=== PATIENT | female | born 1960 | race Caucasian/White ===

== ENCOUNTER → 2017-05-03 10:24 | Outpatient (CLI) | payer MEDICARE, SELFPAY ==
--- NOTE | 2017-05-03 10:27 | XR_ITS ---
XR knee LT 4V HISTORY: ITS.REASON: left knee pain ORDERING PHYSICIAN: Jun Daly MD PATIENT AGE: 56 years COMPARISON: None FINDINGS: Weightbearing views are performed. There are severe osteoarthritic changes of the left knee greater at the medial compartment with bone on bone and loss of the joint space medially. There is osteosclerosis of the articular surface of the medial compartment. Moderate osteoarthritic changes are present at the patellofemoral joint and lateral compartment. Scattered osteophytes are present involving all 3 compartments. A 6 mm rounded calcific density is present medial to the medial compartment and could represent a loose fragment versus periarticular calcification. IMPRESSION: Osteoarthritis of left knee greatest at the medial compartment as described above
--- NOTE | 2017-05-03 10:27 | XR_ITS ---
XR knee RT 4V HISTORY: ITS.REASON: right knee pain ORDERING PHYSICIAN: Jun Daly MD PATIENT AGE: 56 years COMPARISON: None FINDINGS: Weightbearing views are performed. No fracture or dislocation. No lytic or blastic change. Normal mineralization. Severe osteoarthritic changes are present at the medial compartment with loss of joint space with bone on bone. Moderate osteoarthritic changes are present at the lateral compartment and patellofemoral joint. Osteophyte formation is present involving all 3 compartments. There is mild lateral tibial translation of approximately 7 mm. IMPRESSION: Osteoarthritis of the right knee worse at the medial compartment as described above
== END ==
PROVIDERS: PCP Family Medicine; Visit Provider Orthopaedic Surgery
DX: M25.562 Pain in left knee (principal); M25.561 Pain in right knee
CPT/HCPCS: 73564

== ENCOUNTER 2017-12-25 09:00 | Outpatient (RCR) | payer MEDICARE, SELFPAY | END 2017-12-25 09:01 | disposition home or self-care (01) | LOC: PT 09:00 | PROVIDERS: Family Provider Family Medicine; PCP Family Medicine; Visit Provider Orthopaedic Surgery Adult Reconstructive Orthopaedic Surgery | DX: Z96.652 Presence of left artificial knee joint (principal) | CPT/HCPCS: 97010; 97014; 97016; 97110; 97140; 97163; G0283 ==

== ENCOUNTER → 2020-01-12 08:55 | Outpatient (CLI) | payer MEDICARE, SELFPAY ==
--- NOTE | 2020-01-12 09:14 | MM_ITS ---
PROCEDURE: MM DIG SCREENING MAMM BI W/CAD Digital Breast Tomosynthesis Included CLINICAL INDICATION: SCREENING There is no personal or family history of breast cancer. There has been previous breast reduction surgery. COMPARISON: No previous exams available for review TECHNIQUE: Standard CC and MLO images and 3D Tomosynthesis was obtained. R2 CAD reviewed. FINDINGS: The breasts are composed primarily of fat with scattered fibroglandular densities in each breast. There are few benign-appearing microcalcifications in each breast. There is a small partially calcified oil cyst outer quadrant left breast. There are a couple of normal appearing nodes in each axilla. There is no suspicious lesion in either breast and no suspicious microcalcifications. IMPRESSION: Fatty type breast parenchyma with no suspicious lesions seen BI-RAD Category: 2 Benign Finding(s) FOLLOW-UP: 1YR 1 Year Follow-up (A letter has been sent to the patient regarding results of the study.) Dictated by: Dr. Ramesh Kruger MD 01/16/2020 14:52 Dr. Ramesh Kruger MD in [place] 01/16/2020 14:52
--- NOTE | 2020-01-12 09:14 | XR_ITS ---
PROCEDURE: XR DEXA AXIAL SKELETON CLINICAL HISTORY: OSTEOPENIA COMPARISON: No exams were available for comparison FINDINGS: The right hip BMD is 0.809 with a T-score of -0.4. The left hip BMD is 0.850 with a T-score of 0.0. The left forearm BMD is 0.688 with a T-score of -0.1. IMPRESSION: This patient is considered normal according to the World Health Organization criteria. Fracture risk is low. Based on these results a follow-up exam is recommended in 2 year. Dictated by: Umesh Suero MD 01/12/2020 19:31 Umesh Suero MD in [place] 01/13/2020 08:25
== END ==
PROVIDERS: PCP Family Medicine; Visit Provider Family Medicine
DX: Z12.31 Encounter for screening mammogram for malignant neoplasm of breast (principal); M85.89 Other specified disorders of bone density and structure, multiple sites
CPT/HCPCS: 77063; 77067; 77080

== ENCOUNTER 2020-11-14 21:46 | Emergency (ER) | payer MEDICARE, SELFPAY ==
[2020-11-14 22:02] VITALS: BP 150/96; PULSE 102; RESP 18; TEMP 36.9; O2SAT 98; BMI 38.9
--- NOTE | 2020-11-14 22:54 | HMH.EDGENADL ---
ED Disposition Clinical Impression: Low back pain Qualifiers: Chronicity: acute Back pain laterality: bilateral Sciatica presence: without sciatica Qualified Code(s): M54.5 - Low back pain Disposition: Home, Self-Care Condition on Discharge: Fair Instructions: DI for Low Back Pain Additional Instructions: See your primary care provider tomorrow for follow-up. Continue your current medication. Additional instructions for BACK PAIN: See your physician as soon as possible for further evaluation. Return immediately if back pain becomes intolerable, or if fever, numbness or weakness of your legs, loss of control of your bowels or bladder. Referrals: Cornell Roche MD [Primary Care Provider] - - Critical Care Critical Care Time: No Attestation: On 11/14/20, the high probability of a clinically significant, sudden or life threatening deterioration of the following system(s) required my full and direct attention, intervention and personal management. The time I documented below is in addition to time spent performing reported procedures but includes the following listed in this critical care notation. Medical Decision Making - Osman Inquiry Pt receiving controlled substance: Yes Osman was queried for this patient: Yes Risks and benefits of using a controlled substance: were discussed with pt by me Vital Signs: 11/14/20 22:02 Temperature 98.5 F Temperature Source Oral Pulse Rate [Right Brachial] 102 H Respiratory Rate 18 Blood Pressure [Right Arm] 150/96 H Blood Pressure Mean [Right Arm] 114 Blood Pressure Source [Right Arm] Automatic Cuff Blood Pressure Position [Right Arm] Sitting 02 Sat by Pulse Oximetry 98 Oxygen Delivery Method Room Air Orders (Tests/Meds): ED MEDICATIONS Discontinued Medications Generic Name Dose Route Start Last Admin Trade Name Sydney PRN Reason Stop Dose Admin Hydromorphone HCl 2 mg 11/14/20 23:01 11/14/20 23:12 Hydromorphone 2mg/Ml Syringe IM 11/14/20 23:02 2 mg ONCE ONE Administration ORDERS Category Date Time Status Lumbar spine XR 2-3 views [XR lumbar spine 2-3V] Stat Exams 11/14/20 23:01 Ordered Medical Decision Narrative: Patient wants to be discharged and get x-rays ordered by her physician tomorrow. Does not want to wait for x-rays here. General Adult HPI - General Chief complaint: Back Pain/Injury Stated complaint: WC 12/15/00 back pain Time Seen by Provider: 11/14/20 22:54 Mode of Arrival: Family Vehicle Limitations: No Limitations Description of Symptoms (Recalled from ER Triage Doc. by RN): pt with chronic back issues bent over 2 days ago and exacerbated her back issues-thought it would improve but it has not-despite treating with her prescribed meds oxy 20 twice a day and 2 gabapentin morning and night . pt presents for pain relief. denies issues with loss of bowel or bladder. denies new alteration in sensation. - History of Present Illness HPI narrative: Patient has had history of chronic back pain, treated by her primary care physician, Dr. Roche. She bent over a couple of days ago and felt a pop in her lower back. Since then has pain diffusely across her lower back radiating up the right side. No numbness or weakness no loss of bowel or bladder control. She thought she just pulled a muscle and tried laying on it and ice pack, with mild improvement initially with that, but worsening again. She is on OxyContin twice a day and gabapentin and has not gotten relief. - Related Data Home Medications Medication Instructions Recorded Confirmed benazepril 10 mg tablet 10 mg PO QDAY 05/03/17 diclofenac sodium 75 mg 75 mg PO BID 05/03/17 tablet,delayed release oxycodone 10 mg tablet,crush 10 mg PO Q12H 05/03/17 resistant,extended release 12 hr pregabalin 150 mg capsule 150 mg PO BID 05/03/17 Allergies Allergy/AdvReac Type Severity Reaction Status Date / Time No Known Allergies Allergy Verified 05/31/17 0
[2020-11-14 23:42] VITALS: BP 133/82; PULSE 80; RESP 18; TEMP 36.7; O2SAT 96
== END 2020-11-14 23:44 | disposition home or self-care (01) ==
PROVIDERS: Emergency Provider Emergency Medicine; PCP Family Medicine
DX: M54.5 Low back pain (principal); G89.29 Other chronic pain
CPT/HCPCS: 96372; 99281

== ENCOUNTER → 2020-11-20 14:05 | Outpatient (CLI) | payer MEDICARE, SELFPAY | PROVIDERS: PCP Family Medicine; Visit Provider Family Medicine | DX: Z20.822 Contact with and (suspected) exposure to COVID-19 (principal) | CPT/HCPCS: U0003 ==

== ENCOUNTER → 2020-11-30 13:45 | Outpatient (CLI) | payer MEDICARE, SELFPAY ==
--- NOTE | 2020-11-30 13:50 | CT_ITS ---
PROCEDURE: CT LUMBAR SPINE WO CON CLINICAL HISTORY: LOW BACK PAIN COMPARISON: No exams were available for comparison TECHNIQUE: Axial images obtained with sagittal and coronal reformats. All CT scans at the facility use one or more dose reduction, viz: automated exposure control, ma/kV adjustment per patient size (including targeted exams where dose is matched to indication, i.e. head), or iterative reconstruction technique. FINDINGS: There is normal alignment. No acute fracture or dislocation is evident. T12-L1: Unremarkable. L1-L2: Degenerative disc disease with 3 mm retrolisthesis of L1 and endplate hypertrophic change anteriorly. Mild bulging disc. Facet ligamentum hypertrophy with mild bilateral lateral recess narrowing. Small hemangioma the L1 vertebral body on the right at 12 mm. L2-L3: Mild degenerative disc disease with mild bulging disc with 2-3 mm retrolisthesis of L2 and bulging disc with bilateral lateral recess narrowing. L3-L4: Mild degenerative disc disease. Mild bulging disc. Facet and ligamentum hypertrophy with mild bilateral lateral recess narrowing. L4-5: Mild bulging disc with mild degenerative disc disease. Facet hypertrophic change. There is mild bilateral foraminal narrowing. L5-S1: Inter pedicular screws are present on the right at L5 and S1 with interconnecting emily. Severe facet hypertrophic change resulting in moderate right foraminal and moderate bilateral foraminal narrowing slightly greater on the left. There is bulging disc with endplate osteophytes. Bony hypertrophy is present especially in the right facet region resulting in right lateral recess narrowing.. This may to be causing some bony entrapment upon the exiting nerve root at this level. Distended urinary bladder. IMPRESSION: Multilevel lumbar spondylosis. Please see above for detailed description at each level. Postsurgical changes on the right at L5-S1 with prominent bony hypertrophy at the facet region resulting in bilateral foraminal narrowing and right lateral recess narrowing. Prominent bony hypertrophy appears to be causing some entrapment upon the exiting nerve root on the right at this level. No acute fracture or significant malalignment Dictated by: Umesh Suero MD 12/01/2020 06:52 Umesh Suero MD in [place] 12/01/2020 06:52
--- NOTE | 2020-11-30 13:50 | CT_ITS ---
PROCEDURE: CT THORACIC SPINE WO CON CLINICAL HISTORY: LOW BACK PAIN COMPARISON: No exams were available for comparison TECHNIQUE: Axial images obtained with sagittal and coronal reformats. All CT scans at the facility use one or more dose reduction, viz: automated exposure control, ma/kV adjustment per patient size (including targeted exams where dose is matched to indication, i.e. head), or iterative reconstruction technique. FINDINGS: There is normal alignment. No acute fracture or dislocation is evident. Multilevel degenerative disc disease is present in the midthoracic spine. No canal stenosis . No lytic or blastic changes. Right lateral recess narrowing is present at T9-T10 from facet hypertrophy also resulting in severe right-sided foraminal narrowing.. Ligamentum hypertrophy with mild ligamentum ossification noted at T10-T11 with canal stenosis and bilateral lateral recess narrowing left greater than right. Mild right lateral recess narrowing at T11-T12. IMPRESSION: Multilevel thoracic spondylosis with degenerative disc disease and facet and ligamentum hypertrophy with resultant lateral recess and foraminal narrowing as detailed above with canal stenosis at T10-T11. No acute fracture. Dictated by: Umesh Suero MD 12/01/2020 07:00 Umesh Suero MD in [place] 12/01/2020 07:00
== END ==
PROVIDERS: PCP Family Medicine; Visit Provider Family Medicine
DX: M51.26 Other intervertebral disc displacement, lumbar region (principal)
CPT/HCPCS: 72128; 72131

== ENCOUNTER → 2021-03-14 15:55 | Outpatient (CLI) | payer MEDICARE, SELFPAY ==
--- NOTE | 2021-03-14 15:57 | MM_ITS ---
PROCEDURE INFORMATION: Exam: MG Bilateral Screening 3D Mammography Exam date and time: 03/14/2021 3:57 PM Age: 60 years old Clinical indication: Encounter for screening mammogram for malignant neoplasm of breast TECHNIQUE: Imaging protocol: Bilateral screening tomosynthesis and 2D mammography including computer-aided detection (CAD) when performed. COMPARISON: MG MM DIG SCREENING MAMM BI W/CAD 01/12/2020 9:14 AM FINDINGS: MAMMOGRAPHY: Breast composition: The breasts are almost entirely fatty. Mass: None. Architectural distortion: None. Calcifications: No suspicious calcifications. Asymmetric density: None. Skin thickening: None. Axillary adenopathy: None. IMPRESSION: No mammographic evidence of malignancy. Annual screening is recommended unless otherwise clinically indicated. ASSESSMENT: BI-RADS Category 1: Negative
== END ==
PROVIDERS: PCP Family Medicine; Visit Provider Family Medicine
DX: Z12.31 Encounter for screening mammogram for malignant neoplasm of breast (principal)
CPT/HCPCS: 77063; 77067

== ENCOUNTER 2021-07-03 02:21 | Emergency (ER) | payer MEDICARE, SELFPAY ==
[2021-07-03 02:22] VITALS: BP 131/99; PULSE 110; RESP 18; TEMP 36.7; O2SAT 99; BMI 37.8
--- NOTE | 2021-07-03 02:49 | HMH.EDGENADL ---
ED Disposition Clinical Impression: Chronic prescription opiate use, Opiate withdrawal Disposition: Home, Self-Care Condition on Discharge: Good Instructions: DI for Taking Pain Medication Additional Instructions: call pcp this am Referrals: Jack Cuevas MD [Primary Care Provider] - - Critical Care Critical Care Time: No Attestation: On 07/03/21, the high probability of a clinically significant, sudden or life threatening deterioration of the following system(s) required my full and direct attention, intervention and personal management. The time I documented below is in addition to time spent performing reported procedures but includes the following listed in this critical care notation. Medical Decision Making - Medical Records Medical records reviewed: Yes: I reviewed the patient's medical records. - Osman Inquiry Pt receiving controlled substance: No Vital Signs: 07/03/21 02:22 Temperature 98.0 F Temperature Source Oral Pulse Rate [Right] 110 H Respiratory Rate 18 Blood Pressure [Right Arm] 131/99 H Blood Pressure Mean [Right Arm] 109 02 Sat by Pulse Oximetry 99 Orders (Tests/Meds): ED MEDICATIONS Discontinued Medications Generic Name Dose Route Start Last Admin Trade Name Sydney PRN Reason Stop Dose Admin Lorazepam 1 mg 07/03/21 02:37 07/03/21 02:38 Lorazepam 2mg/Ml Vial IM 07/03/21 02:38 1 mg ONCE ONE Administration Medical Decision Narrative: has chronic opiate use and has last dose - about 12 hrs ago General Adult HPI - General Chief complaint: PAIN Stated complaint: Muscle Spasms;Sweating and Chilling Time Seen by Provider: 07/03/21 02:49 Mode of Arrival: Ambulatory Source of Information: Patient, Relative, Medical Record Limitations: No Limitations Description of Symptoms (Recalled from ER Triage Doc. by RN): pt states she take 20mg oxycodone BID and has been out since sunday @ 9pm. pt c/o sweating, shaking, back spasms that started tonight - History of Present Illness HPI narrative: took last dose of opiate this am and now has shaking and diff sleeping Onset (ago): hour(s) Severity: moderate Associated symptoms: denies other symptoms Treatments prior to arrival: none - Related Data Home Medications Medication Instructions Recorded Confirmed benazepril 10 mg tablet 10 mg PO QDAY 05/03/17 diclofenac sodium 75 mg 75 mg PO BID 05/03/17 tablet,delayed release oxycodone 10 mg tablet,crush 10 mg PO Q12H 05/03/17 resistant,extended release 12 hr pregabalin 150 mg capsule 150 mg PO BID 05/03/17 Allergies Allergy/AdvReac Type Severity Reaction Status Date / Time No Known Allergies Allergy Verified 05/31/17 09:35 [facility] History - Hepatitis A Screen Drug use history?: No High risk sexual behaviors?: No History of sexually transmitted infection?: No Currently employed?: No Childcare worker?: No Do you have indoor plumbing?: Yes Do you have electricity?: Yes Attestation statement:: This patient has been screened for Hepatitis A risk factors. I have reviewed the patient's past medical history: Yes Other Medical History: Reports: Arthritis Laterality Cases: Left: Arthroscopy Knee Other Surgeries: Yes: Appendectomy, Colonoscopy, Tubal Ligation, Other - Social History Smoking Status: Never smoker Alcohol Intake: never Family Hx:: No significant family history ROS Obtained: Yes All systems reviewed & no additional complaints - Constitutional Constitutional: Denies fever(s) - Eyes Eyes: Denies change in vision - ENT Ears, Nose, Mouth, and Throat: Denies epistaxis - Cardiovascular Cardiovascular: Denies chest pain - Respiratory Respiratory: Denies shortness of breath - Gastrointestinal Gastrointestingal: Denies: abdominal pain - Genitourinary Female Genitourinary: Denies hematuria - Musculoskeletal Musculoskeletal: Denies joint pain - Integumentary/Breasts Skin/Breast: Denies rash - Neurologi
[2021-07-03 03:00] VITALS: BP 141/98; PULSE 110; RESP 18; TEMP 36.7; O2SAT 99
== END 2021-07-03 03:02 | disposition home or self-care (01) ==
PROVIDERS: Emergency Provider Emergency Medicine; PCP Family Medicine
DX: F11.13 Opioid abuse with withdrawal (principal); R61 Generalized hyperhidrosis; M62.830 Muscle spasm of back; M19.90 Unspecified osteoarthritis, unspecified site; Z79.899 Other long term (current) drug therapy
CPT/HCPCS: 96372; 99213; G0463

== ENCOUNTER → 2021-10-12 15:58 | Outpatient (CLI) | payer MEDICARE, SELFPAY ==
--- NOTE | 2021-10-12 16:02 | XR_ITS ---
FINAL REPORT CLINICAL HISTORY: INJURY OF LT ANKLE, INTIAL ENCOUNTER FINDINGS: LEFT FOOT Three views of the left foot demonstrate no acute fracture or dislocation. The visualized joint spaces are normally aligned. The soft tissues are unremarkable. IMPRESSION: No acute bony abnormality. Reviewed, Interpreted and Dictated by Gilbert Fisher III, MD Transcribed by Amalia Kramer Authenticated and . [facility]
--- NOTE | 2021-10-12 16:02 | XR_ITS ---
FINAL REPORT CLINICAL HISTORY: INJURY OF LT ANKLE, INTIAL ENCOUNTER FINDINGS: LEFT ANKLE Three views of the left ankle were obtained. There is no acute fracture or dislocation. There is mild degenerative change. There is a chronic calcification inferior to the medial malleolus. There are small calcaneal spurs. There is no soft tissue abnormality. IMPRESSION: Degenerative change with no acute bony abnormality. Reviewed, Interpreted and Dictated by Gilbert Fisher III, MD Transcribed by Amalia Kramer Authenticated and [facility]
== END ==
LOC: RAD 15:59
PROVIDERS: PCP Family Medicine; Visit Provider Physician Assistant
DX: S99.912A Unspecified injury of left ankle, initial encounter (principal)
CPT/HCPCS: 73610; 73630

== ENCOUNTER 2021-11-30 12:01 | Emergency (ER) | payer MEDICARE, SELFPAY ==
--- NOTE | 2021-11-30 12:17 | HMH.EDUTC ---
[facility] [place] Impression: Viral syndrome, Exposure to COVID-19 virus Disposition: Home, Self-Care Condition on Discharge: Good Instructions: DI for COVID-19 (Suspected or Confirmed ), Preventing the Spread of Coronavirus Discharge Instructions Additional Instructions: Drink plenty of fluids. Take tylenol for pain or fever. Return if you begin to have difficulty breathing. Follow up with your regular doctor. GO TO THE ER FOR ANY WORSENING SYMPTOMS Quarantine until you know the results of your covid-19 test. Notify your school or workplace of your results and follow their instructions regarding return to work/school. Referrals: Cornell Roche MD [Primary Care Provider] - Time of Disposition: 12:23 Medical Decision Making - Medical Records Medical records reviewed: No: I reviewed the patient's medical records. - Osman Inquiry Pt receiving controlled substance: No Vital Signs: 11/30/21 12:24 11/30/21 12:26 Temperature 98.4 F 98.4 F Temperature Source Oral Pulse Rate 107 H Pulse Rate [Left] 107 H Respiratory Rate 18 18 Blood Pressure 113/80 Blood Pressure [Right Arm] 113/80 Blood Pressure Mean [Right Arm] 91 02 Sat by Pulse Oximetry 97 [facility] [place] - General Stated complaint: Headache, covid exposure Time Seen by Provider: 11/30/21 12:17 - History of Present Illness Provider Complaint: She states that she was exposed to covid-19 about 5 days ago at a [facility] [employer]. Since yesterday, she has had a headache and she has felt kind of bad . She denies any cough, congestion, or shortness of breath. - Related Data Home Medications Medication Instructions Recorded Confirmed benazepril 10 mg tablet 10 mg PO QDAY 05/03/17 diclofenac sodium 75 mg 75 mg PO BID 05/03/17 tablet,delayed release oxycodone 10 mg tablet,crush 10 mg PO Q12H 05/03/17 resistant,extended release 12 hr pregabalin 150 mg capsule 150 mg PO BID 05/03/17 Allergies Allergy/AdvReac Type Severity Reaction Status Date / Time No Known Allergies Allergy Verified 11/30/21 12:26 [facility] History - Hepatitis A Screen Attestation statement:: This patient has been screened for Hepatitis A risk factors. I have reviewed the patient's past medical history: Yes Other Medical History: Reports: Arthritis Laterality Cases: Left: Arthroscopy Knee Other Surgeries: Yes: Appendectomy, Colonoscopy, Tubal Ligation, Other - Social History Smoking Status: Never smoker Alcohol Intake: never Family Hx:: No significant family history ROS Obtained: Yes All systems reviewed & no additional complaints - Constitutional Constitutional: Reports as per HPI - Eyes Eyes: Denies eye discharge - ENT Ears, Nose, Mouth, and Throat: Reports as per HPI - Cardiovascular Cardiovascular: Denies chest pain - Respiratory Respiratory: Denies chest congestion, Reports cough Physical Exam - General General appearance: alert, in no apparent distress - Head Head exam: atraumatic, normocephalic, normal inspection - Eye Eye exam: Present: normal appearance, PERRL, EOMI - ENT ENT exam: Present: normal exam, normal oropharynx, mucous membranes moist, TM's normal bilaterally, normal external ear exam - Neck Neck exam: Present: normal inspection, full ROM, trachea midline. Absent: meningismus, lymphadenopathy - Chest Chest inspection: Present: normal inspection, symmetric chest wall rise. Absent: tenderness - Respiratory Respiratory exam: Present: normal lung sounds bilaterally. Absent: respiratory distress - Cardiovascular Cardiovascular exam: Present: regular rate, normal rhythm. Absent: JVD - Abdominal Exam Abdominal exam: Present: soft, normal bowel sounds. Absent: distention, tenderness, guarding - Extremities Exam Extremities exam: Present: normal inspection, full ROM, normal capillary refill. Absent: calf tenderness - Back Exam Back exam: Present: normal inspection. Absent:
[2021-11-30 12:24] VITALS: BP 113/80; PULSE 107; RESP 18; TEMP 36.9; O2SAT 97; BMI 38.9
[2021-11-30 12:26] VITALS: BP 113/80; PULSE 107; RESP 18; TEMP 36.9
== END 2021-11-30 12:27 | disposition home or self-care (01) ==
PROVIDERS: Emergency Provider Nurse Practitioner Family; PCP Family Medicine
DX: Z20.822 Contact with and (suspected) exposure to COVID-19 (principal); B34.9 Viral infection, unspecified; R51.9 Headache, unspecified
CPT/HCPCS: 99212; C9803; G0463; U0003; U0005

== ENCOUNTER 2022-03-08 11:53 | Emergency (ER) | payer MEDICARE, SELFPAY ==
--- NOTE | 2022-03-08 12:45 | EXP.UTC ---
Discharge Plan Disposition Patient Disposition: Home, Self-Care Condition: Good Prescriptions Prescriptions: New azithromycin [Zithromax] 250 mg tablet 250 mg PO UD DOSE PK Qty: 6 0RF Rx Instructions: Take two (2) tablets today, then one (1) tablet days #2 thru #5 benzonatate [benzonatate] 100 mg capsule 100 mg PO TIDP PRN (Reason: Cough) Qty: 30 0RF methylprednisolone 4 mg Tablets,Dose Pack 4 mg PO DIRECTED Qty: 21 0RF No Action oxycodone [OxyContin] 10 mg tablet extended release 12hr 10 mg PO Q12H pregabalin [Lyrica] 150 mg capsule 150 mg PO BID diclofenac sodium 75 mg tablet,delayed release (DR/EC) 75 mg PO BID benazepril 10 mg tablet 10 mg PO QDAY Referrals Follow up/Referrals: Cornell Roche MD [Primary Care Provider] - See instructions Activity Restrictions/Add. Instructions Additional Instructions/Restrictions: Drink plenty of fluids. Take tylenol or ibuprofen for pain or fever. Take the medications as directed. Follow up with your regular doctor. GO TO THE ER FOR ANY WORSENING SYMPTOMS Clinical Impressions Clinical Impression: Viral syndrome, Pharyngitis Instructions Patient Instructions: DI for Pharyngitis/Tonsillopharyngitis -- Adult, DI for Viral Syndrome Discharge ED Provider: Jun Perry [facility] General Stated complaint: Covid/Flu test, BA, Fever, Sore throat, cough Time Seen by Provider: 03/08/22 12:45 History of Present Illness Provider Complaint: She states that since last night she has had worsening chest congestion, sore throat, and she has felt bad. Related Data Home Medications Medication Instructions Recorded Confirmed benazepril 10 mg tablet 10 mg PO QDAY 05/03/17 diclofenac sodium 75 mg 75 mg PO BID 05/03/17 tablet,delayed release oxycodone 10 mg tablet,crush 10 mg PO Q12H 05/03/17 resistant,extended release 12 hr (OxyContin) pregabalin 150 mg capsule (Lyrica) 150 mg PO BID 05/03/17 Previous Rx's Medication Instructions Recorded azithromycin 250 mg tablet 250 mg PO UD DOSE PK #6 tabs 03/08/22 (Zithromax) benzonatate 100 mg capsule 100 mg PO TIDP PRN Cough #30 caps 03/08/22 methylprednisolone 4 mg tablets in 4 mg PO DIRECTED #21 tabs 03/08/22 a dose pack Allergies Allergy/AdvReac Type Severity Reaction Status Date / Time No Known Allergies Allergy Verified 03/08/22 12:50 PFSH PFS Social History Smoking Status: Never smoker alcohol intake: never current occupational status: employed Travel in the last 8 weeks: None ROS Obtained: Yes All systems reviewed & no additional complaints except as documented Constitutional Constitutional: Reports chills and Denies fever(s) Eyes Eyes: Denies eye discharge ENT Ears, Nose, Mouth, and Throat: Reports as per HPI Cardiovascular Cardiovascular: Denies chest pain Respiratory Respiratory: Denies chest congestion and Reports cough Gastrointestinal Gastrointestingal: Reports nausea; Denies abdominal pain, constipation, cramping, diarrhea or vomiting Musculoskeletal Musculoskeletal: Denies arthralgias Integumentary/Breasts Skin/Breast: Denies rash Neurologic Neurologic: Denies paresthesias Physical Exam General General appearance: alert and in no apparent distress Head Head exam: atraumatic, normocephalic and normal inspection Eye Eye exam: Present normal appearance, PERRL and EOMI ENT ENT exam: Present mucous membranes moist and normal external ear exam Expanded ENT Exam TM/Canal exam: Bilateral TM: erythema and bulging Nose exam: Absent sinus tenderness Mouth exam: Present normal external inspection; Absent drooling Teeth exam: Present normal inspection Throat exam: Present tonsillar erythema, tonsillomegaly and tonsillar exudate Neck Neck exam: Present normal inspection, full ROM and trachea midline; Absent tenderness, meningismus or lymphadenopathy Ches
[2022-03-08 12:48] VITALS: BP 131/95; PULSE 125; RESP 18; TEMP 37.4; O2SAT 95; BMI 38.9
[2022-03-08 13:00] LABS: UTC Influenza A Antigen Negative (Negative); UTC Influenza B Antigen Negative (Negative)
[2022-03-08 13:21] VITALS: BP 131/95; PULSE 125; RESP 18; TEMP 37.4
[2022-03-08 13:29] LABS: Adenovirus,PCR Not Detected (NotDetected); Bordetella Pertussis Not Detected (NotDetected); Chlamydophila Pneumoniae, PCR Not Detected (NotDetected); Coronavirus 19, PCR Not Detected (NotDetected); Coronavirus 229E Not Detected (NotDetected); Coronavirus NL63 Not Detected (NotDetected); Coronavirus OC43 Not Detected (NotDetected); Coronovirus HKU1,PCR Not Detected (NotDetected); Human Metapneumovirus Not Detected (NotDetected); Influenza A, PCR Not Detected (NotDetected); Influenza AH1, 2009 Not Detected (NotDetected); Influenza AH1, PCR Not Detected (NotDetected); Influenza AH3,PCR Not Detected (NotDetected); Influenza B, PCR Not Detected (NotDetected); Mycoplasma Pneumoniae, PCR Not Detected (NotDetected); Parainfluenza 1, PCR Not Detected (NotDetected); Parainfluenza 2, PCR Not Detected (NotDetected); Parainfluenza 3, PCR Not Detected (NotDetected); Parainfluenza 4, PCR Not Detected (NotDetected); Respiratory Syncytial Virus Not Detected (NotDetected); Rhinovirus/Enterovirus Not Detected (NotDetected)
== END 2022-03-08 13:31 | disposition home or self-care (01) ==
PROVIDERS: Emergency Provider Nurse Practitioner Family; PCP Family Medicine
DX: J02.9 Acute pharyngitis, unspecified (principal); B34.9 Viral infection, unspecified
CPT/HCPCS: 87581; 87632; 87798; 87804; 99212; C9803; G0463; U0003; U0005

== ENCOUNTER → 2022-06-02 15:53 | Outpatient (CLI) | payer MEDICARE, SELFPAY ==
--- NOTE | 2022-06-02 15:54 | MR_ITS ---
PROCEDURE INFORMATION: Exam: MR Cervical Spine Without Contrast Exam date and time: 06/02/2022 4:26 PM Age: 61 years old Clinical indication: Injury or trauma; Patient HX: Stiffness in neck. Multiple falls since 04/09/22; Additional info: Severe neck pain, frequent falls TECHNIQUE: Imaging protocol: Magnetic resonance imaging of the cervical spine without contrast. COMPARISON: CT THORACIC SPINE WO CON 11/30/2020 2:57 PM FINDINGS: Bones/joints: No acute fracture or malalignment. Some degenerative endplate signal changes are seen at C4 and C5. Spinal cord: Normal signal. No cord compression. C2-C3: No significant disc bulge or herniation. No severe spinal canal stenosis. No significant neural foraminal narrowing. C3-C4: Small central disc protrusion without substantial spinal canal or neural foraminal stenosis. C4-C5: Moderate disc space narrowing. Posterior disc osteophyte complex, uncovertebral spurring and facet hypertrophy contribute to mild spinal canal stenosis. Moderate left and mild right neural foraminal stenosis. C5-C6: Posterior disc osteophyte complex, uncovertebral spurring and facet hypertrophy contribute to severe right and mild left neural foraminal stenosis. No substantial spinal canal stenosis. C6-C7: Posterior disc osteophyte complex, uncovertebral spurring and facet hypertrophy contribute to mild bilateral neural foraminal stenosis. No substantial spinal canal stenosis. C7-T1: No significant disc bulge or herniation. No severe spinal canal stenosis. No significant neural foraminal narrowing. Soft tissues: Unremarkable. Vasculature: Expected flow voids in the vertebral arteries. IMPRESSION: Multilevel cervical spondylosis, which contributes to mild spinal canal stenosis at C4-C5 and moderate to severe neural foraminal stenosis at C4-C5 on the left and C5-C6 on the right.
--- NOTE | 2022-06-02 17:19 | XR_ITS ---
PROCEDURE INFORMATION: Exam: XR Cervical Spine Exam date and time: 06/02/2022 5:20 PM Age: 61 years old Clinical indication: Neck pain; Additional info: Severe neck pain TECHNIQUE: Imaging protocol: Radiologic exam of the cervical spine. Views: 4 or 5 views. COMPARISON: MR CERVICAL SPINE WO CON 06/02/2022 4:26 PM FINDINGS: Bones/joints: Narrowing is seen at C4-C5 and C5-C6. Anterior osteophytes are present. No evidence of translation with flexion and extension is noted. Soft tissues: Unremarkable. IMPRESSION: Mild cervical spondylosis.
== END ==
LOC: RAD 15:54
PROVIDERS: PCP Family Medicine; Visit Provider Specialist
DX: M54.2 Cervicalgia (principal); R29.2 Abnormal reflex; R29.6 Repeated falls
CPT/HCPCS: 72052; 72141; 76376

== ENCOUNTER → 2022-06-05 09:22 | Outpatient (CLI) | payer MEDICARE, SELFPAY ==
[2022-06-05 11:17] LABS: Vitamin B12 563 pg/mL (239-931)
== END ==
PROVIDERS: PCP Family Medicine; Visit Provider Specialist
DX: R29.2 Abnormal reflex (principal); R29.6 Repeated falls
CPT/HCPCS: 36415; 82607

== ENCOUNTER → 2022-06-27 13:33 | Outpatient (CLI) | payer MEDICARE, SELFPAY | PROVIDERS: PCP Family Medicine; Visit Provider Specialist | DX: G47.33 Obstructive sleep apnea (adult) (pediatric) (principal); R06.83 Snoring | CPT/HCPCS: G0399 ==

== ENCOUNTER → 2022-09-29 11:58 | Outpatient (CLI) | payer MEDICARE, SELFPAY ==
--- NOTE | 2022-09-29 12:05 | XR_ITS ---
FINAL REPORT CLINICAL HISTORY: LT WRIST PAIN COMPARISON: None FINDINGS: LEFT WRIST Three views demonstrate no acute fracture or dislocation. There is mild degenerative change, greatest at the radial aspect of the wrist. The visualized joint spaces are normally aligned. The soft tissues are unremarkable. IMPRESSION: Mild degenerative change without acute bony abnormality. Reviewed, Interpreted and Dictated by Gilbert Fisher III, MD Transcribed by Brisa Spears Authenticated and [facility]
--- NOTE | 2022-09-29 12:05 | XR_ITS ---
FINAL REPORT CLINICAL HISTORY: LT THUMB PAIN COMPARISON: None FINDINGS: LEFT HAND: 3 views of the left hand were obtained. There is no acute fracture or dislocation. There is mild degenerative change, worst at the 1st IP joint. Visualized joint spaces are normally aligned. Soft tissues are unremarkable. IMPRESSION: Degenerative change without acute bony abnormality. Reviewed, Interpreted and Dictated by Gilbert Fisher III, MD Transcribed by Brisa Spears Authenticated and . [facility]
== END ==
PROVIDERS: PCP Family Medicine; Visit Provider Family Medicine
DX: M79.645 Pain in left finger(s) (principal); M25.532 Pain in left wrist
CPT/HCPCS: 73110; 73130

== ENCOUNTER → 2022-12-14 10:02 | Outpatient (CLI) | payer MEDICARE, SELFPAY ==
--- NOTE | 2022-12-14 10:21 | MM_ITS ---
PROCEDURE INFORMATION: Exam: MG Bilateral Screening 3D Mammography Exam date and time: 12/14/2022 10:18 AM Age: 62 years old Clinical indication: Screening examination TECHNIQUE: Imaging protocol: Bilateral Screening tomosynthesis and 2D mammography including computer-aided detection (CAD) when performed. COMPARISON: 1. MG MM DIG SCREENING MAMM BI W/CAD 03/14/2021 3:53 PM 2. MG MM DIG SCREENING MAMM BI W/CAD 01/12/2020 9:14 AM FINDINGS: MAMMOGRAPHY: Breast composition: The breasts are almost entirely fatty. Mass: None. Architectural distortion: None. Calcifications: No suspicious calcifications. Asymmetric density: None. Skin thickening: None. Axillary adenopathy: None. IMPRESSION: No mammographic evidence of malignancy. Annual screening is recommended unless otherwise clinically indicated. ASSESSMENT: BI-RADS Category 1: Negative
--- NOTE | 2022-12-14 10:22 | XR_ITS ---
FINAL REPORT CLINICAL HISTORY: osteopenia COMPARISON: 01/12/2020 FINDINGS: Using L1-4, the bone mineral density of the spine is 1.157 g/cm2, corresponding to T-score of 1.0, within normal limits. Lumbar spine not previously assessed. Using the left hip, the bone mineral density of the femoral neck is 0.830 g/cm2, corresponding to a T-score of -0.2, within normal limits. Previously measured 0.850 g/cm2 with T-score of 0.0. Using the right hip, the bone mineral density of the femoral neck is 0.773 g/cm2, corresponding to a T-score of -0.7, within normal limits. Previously measured 0.809 g/cm? with T score of -0.4. Using the right forearm, the bone mineral density of the right forearm is 0.665 g/cm?, corresponding to a T score of -0.5, within normal limits. Previously, the left forearm was used measuring 0.688 g/cm? with a T score of -0.1. NOTE: T-score: Standard deviation compared with peak bone mass of young adult mean. *Following the recommendations of the International Society of Bone densitometry, classification of hip BMD is based on the lower of two T-scores; total hip or femoral neck. IMPRESSION: Normal bone mineral density of the lumbar spine and hips. Reviewed, Interpreted and Dictated by Scotty Bangura MD Transcribed by Brisa Spears Authenticated and [facility]
== END ==
PROVIDERS: PCP Family Medicine; Visit Provider Family Medicine
DX: Z12.31 Encounter for screening mammogram for malignant neoplasm of breast (principal); M85.89 Other specified disorders of bone density and structure, multiple sites
CPT/HCPCS: 77063; 77067; 77080

== ENCOUNTER 2023-01-21 12:01 | Emergency (ER) | payer MEDICARE, SELFPAY ==
[2023-01-21] VITALS (7 sets, daily range): BP systolic 116–192; BP diastolic 69–158; PULSE 68–94; RESP 18–19; TEMP 36.7–36.8; O2SAT 94–98; BMI 38.9
--- NOTE | 2023-01-21 12:01 | ECG_ITS ---
APPROVED REPORT Exam: Resting ECG HR:89 bpm ECG Measurements Heart Rate 89 AXES HI 171 P 63 QRSd 85 QRS 44 QT 346 T 68 QTc 392 Conclusion SINUS RHYTHM LOW QRS VOLTAGE IN PRECORDIAL LEADS [QRS DEFLECTION < 1.0 mV IN CHEST LEADS] BORDERLINE ECG UNCONFIRMED REPORT Electronically signed by : Jamshid Elliott MD 01/22/2023 19:42:04
--- NOTE | 2023-01-21 12:11 | XR_ITS ---
PROCEDURE INFORMATION: Exam: XR Chest Exam date and time: 01/21/2023 12:19 PM Age: 62 years old Clinical indication: Sternal or substernal pain; Prior surgery; Surgery date: 6+ months; Surgery type: Breast reduction surgery; Patient HX: Chest pressure/pain started in Sunday school this morning. Patient states it feels like gas buildup. ; Additional info: Chest pain TECHNIQUE: Imaging protocol: Radiologic exam of the chest. Views: 2 views. COMPARISON: CR CXR1 CHEST-PORTABLE 10/03/2016 10:27 AM FINDINGS: Lungs: Unremarkable. No consolidation. Pleural spaces: Unremarkable. No pleural effusion. No pneumothorax. Heart/Mediastinum: Unremarkable. No cardiomegaly. Bones/joints: Unremarkable. IMPRESSION: No acute findings.
[2023-01-21 12:17] LABS: Basophils # 0.1 K/mm3 (0-0.2); Basophils % 0.9 % (0.1-2.0); Chloride 100 mmol/L (98-107); Eosinophils # 0.3 K/mm3 (0.0-0.4); Eosinophils % 4.1 % (0.1-12.0); Hematocrit 45.9 % (37.0-47.0); Hemoglobin 14.9 g/dL (12.2-16.2); Lymphocytes # 1.6 K/mm3 (0.7-4.5); Lymphocytes % 21.3 % (10-50); Mean Corpuscular HGB Conc 32.5 g/dL (31.8-35.4); Mean Corpuscular Hemoglobin 29.1 pg (27.0-31.2); Mean Corpuscular Volume 89.7 fl (81-99); Mean Platelet Volume 7.7 fl (7.4-10.4); Monocytes # 0.4 K/mm3 (0.1-1.0); Monocytes % 4.5 % (1.7-9.3); Neutrophils # 5.3 K/mm3 (1.8-7.8); Neutrophils % 69.2 % (37.0-80.0); Platelet Count 258 K/mm3 (142-424); Red Blood Count 5.11 M/mm3 (4.20-5.40); Red Cell Distribution Width 13.2 % (11.5-17.5); White Blood Count 7.7 K/mm3 (4.8-10.8)
[2023-01-21 12:18] LABS: Potassium 3.9 mmoL/L (3.5-5.1); Sodium 139 mmol/L (136-145)
[2023-01-21 12:20] LABS: Alanine Aminotransferase 66 U/L (12-78); Albumin Level 4.4 g/dl (3.5-5.0); Albumin/Globulin Ratio 1.1 (1.1-1.8); Alkaline Phosphatase 94 U/L (38-126); Anion Gap 11.9 mEq/L (5-15); Aspartate Amino Transferase 60 U/L (14-36); Bilirubin,Total 0.6 mg/dl (0.2-1.3); Blood Urea Nitrogen 15 mg/dl (7-17); Carbon Dioxide 31 mmol/L (22.0-30.0); Creatinine Clearance Estimated 91 mL/min (50-200); Estimated Glomerular Filt Rate 63 ml/min (>60); GFR (African American) 77 ML/MIN (>60); Glucose 100 mg/dl (74-100); Total Protein,Serum 8.4 g/dl (6.3-8.2)
--- NOTE | 2023-01-21 12:27 | HMH.EDGENADL ---
Discharge Plan Disposition Patient Disposition: Home, Self-Care Condition: Good Prescriptions Prescriptions: No Action gabapentin 600 mg tablet 600 mg PO BID oxycodone [OxyContin] 20 mg tablet,oral only,ext.rel.12 hr 20 mg PO BID losartan 50 mg tablet See Rx Instructions .ROUTE .COMPLEX Rx Instructions: Take 1 tablet by mouth twice daily amlodipine 5 mg tablet See Rx Instructions .ROUTE .COMPLEX Rx Instructions: Take 1 tablet by mouth once daily duloxetine 30 mg capsule,delayed release(DR/EC) See Rx Instructions .ROUTE .COMPLEX Rx Instructions: Take 1 capsule by mouth once daily triamterene-hydrochlorothiazid 37.5-25 mg tablet See Rx Instructions .ROUTE .COMPLEX Rx Instructions: Take 1 tablet by mouth once daily Referrals Follow up/Referrals: Tyler Clarke MD [Staff Physician] - See instructions Provider,MD Preston [Primary Care Provider] - See instructions Activity Restrictions/Add. Instructions Additional Instructions/Restrictions: Please return to the emergency department if you experience any new or worsening symptoms. Clinical Impressions Clinical Impression: Acute chest pain Instructions Patient Instructions: DI for Atypical Chest Pain Discharge ED Provider: Norm Nix General Adult HPI General Chief complaint: Chest Pain Stated complaint: chest pain Time Seen by Provider: 01/21/23 12:23 History of Present Illness HPI narrative: The patient presents with a chief complaint of chest pressure, which began around 11:25 AM after attending catholic. The sensation was located in the middle of the chest and spread under each breast. The patient denies experiencing palpitations or lightheadedness. The pressure extended into the right shoulder but resolved by the time the patient arrived home. The patient has a history of similar symptoms occurring six years ago, which led to a hospitalization under the care of a plumber maintenance, Dr. Roche. However, no specific cause was identified during that episode. The patient reports that the current symptoms improved after receiving a numbing medication. Additionally, the patient mentions experiencing increased saliva production, which is unusual for them, as they typically have a dry mouth. The patient denies feeling nauseous or short of breath during the episode. They drove themselves to the hospital and took their daily medications, which include three blood pressure medications, gabapentin, oxycodone, and an antidepressant. The patient has no known lung problems. Related Data Home Medications Medication Instructions Recorded Confirmed gabapentin 600 mg tablet 600 mg PO BID nerve pain 05/29/22 01/21/23 oxycodone 20 mg tablet,crush 20 mg PO BID chronic back pain 05/29/22 01/21/23 resistant,extended release 12 hr (OxyContin) amlodipine 5 mg tablet See Rx Instructions .Route 01/21/23 01/21/23 .COMPLEX High Blood Pressure duloxetine 30 mg capsule,delayed See Rx Instructions .Route 01/21/23 01/21/23 release .COMPLEX Depression losartan 50 mg tablet See Rx Instructions .Route 01/21/23 01/21/23 .COMPLEX High Blood Pressure triamterene 37.5 See Rx Instructions .Route 01/21/23 01/21/23 mg-hydrochlorothiazide 25 mg tablet .COMPLEX High Blood Pressure Allergies Allergy/AdvReac Type Severity Reaction Status Date / Time No Known Allergies Allergy Verified 11/15/22 09:58 [facility] Disclaimer: The information contained in this section may have been updated after the patient was seen, as this information can be updated by other users. Medical History (Updated 01/21/23 @ 15:00 by Norm Nix MD) Frequent falls Family History (Updated 05/29/22 @ 08:42 by Kiara Arias) Other Coronary artery disease Social History (Updated 05/29/22 @ 08:42 by Kiara Arias) Smoking Status: Never smoker alcohol intake: current substance use type: denies use current occupational
[2023-01-21 12:34] LABS: Troponin I < 0.01 ng/ml (0.00-0.034)
--- NOTE | 2023-01-21 12:46 | PC.NURSE ---
after the GI cocktail pain is gone , family at BS
--- NOTE | 2023-01-21 13:29 | PC.NURSE ---
Dr. Nix at bedside
--- NOTE | 2023-01-21 13:29 | PC.NURSE ---
would like a 2 hr troponin, will draw @ 1400
--- NOTE | 2023-01-21 14:08 | PC.NURSE ---
sent up 2nd troponin to lab
[2023-01-21 14:31] LABS: Troponin I < 0.01 ng/ml (0.00-0.034)
--- NOTE | 2023-01-21 14:59 | PC.NURSE ---
Dr. Nix at BS to update pt on results
== END 2023-01-21 15:11 | disposition home or self-care (01) ==
PROVIDERS: Emergency Provider Emergency Medicine
DX: R07.89 Other chest pain (principal); I10 Essential (primary) hypertension; F33.9 Major depressive disorder, recurrent, unspecified; R29.6 Repeated falls
CPT/HCPCS: 71046; 80053; 84484; 85025; 93005; 99284

== ENCOUNTER → 2023-02-14 07:58 | Outpatient (CLI) | payer MEDICARE, SELFPAY ==
--- NOTE | 2023-02-14 | CA_ITS ---
APPROVED REPORT Exam: Exercise Treadmill Technologist: Nguyen Fernandez, Ht: 5 ft 3 in Wt: 237 lbs BSA: 2.08 m2 HR: 92 bpm BP: 130/74 mmHg Rhythm: NSR Medical History Medications: Amlodipine,,,,, Gabapentin,,,,, Losartan,,,,, DulOXETINE,,,,, TriaMterene-hctz,,,,, Ocxycodone ER,,,,, Stress Test Details Test: Kunal HR Resting HR: 99 bpm Max Heart Rate (APMHR): 157 bpm Max HR Achieved: 152 bpm Target HR (85% APMHR): 133 bpm % of APMHR: 97 Recovery HR: 103 bpm HR response to stress: Normal HR response to stress BP Resting BP: 111.0/81.0 mmHg Max BP: 172.0/70.0 mmHg Recovery BP: 118.0/73.0 mmHg BP response to stress: Normal blood pressure response to stress. ECG Resting ECG: NSR Stress ECG: < 0.[address] depression Arrhythmia: None Recovery ECG: Return to baseline within 3 minutes of recovery Recovery Arrhythmia: None Clinical Exercise duration: 04:30 min Highest Stage Achieved: Exercise capacity: 7.0 METs Overall Exercise Capacity for Age: Average Stress ECG Conclusion The patient was able to exercise for a total of 4 minutes, 30 seconds. She achieved a total of 7.0 METS. She has average exercise capacity compared to age and sex matched peers. She has normal HR and BP response to exercise. Max HR: 150 % of PM: 96% Max BP: 172/70 METs: 7.0 Test stopped due to: SOA, Fatigue Symptoms: No CP. Arrhythmias/Ectopy: None ST-T Changes: < 0.[address] depression Conclusion: Normal GXT. Average exercise tolerance. Myoview images reported separately. Test Summary REST . . . . . . . Sitting REST . . . . . . . Standing REST 05:27 0.0 0.0 99 . 111/ 81 . . Stage 1 01:00 10.0 1.7 118 . . . . Stage 1 02:00 10.0 1.7 130 . . . . Stage 1 03:00 10.0 1.7 129 . 172/ 70 . . Stage 2 . . . . . . . Myoview Injected Stage 2 01:00 12.0 2.5 136 . . . . Stage 2 01:30 12.0 2.5 142 . . . Stop exercise at 04:30 RECOVERY 01:00 0.0 0.0 140 . . . . RECOVERY 02:00 0.0 0.0 118 . . . . RECOVERY 03:00 0.0 0.0 107 . . . . RECOVERY 04:00 0.0 0.0 109 . 156/ 75 . . RECOVERY 05:00 0.0 0.0 103 . 156/ 75 . . RECOVERY 06:00 0.0 0.0 103 . 101/ 75 . . RECOVERY 06:41 0.0 0.0 101 . 118/ 73 . . Electronically signed by : Cait Mcdaniels MD 02/19/2023 12:54:49
--- NOTE | 2023-02-14 08:05 | NM_ITS ---
APPROVED REPORT Exam: Nuclear Stress Test Indication: chest pain..soa..palptayions..high bp..fatigue Patient Location: Outpatient Stress Tech: Nguyen Hugo [place] Tech:JETT Salazar RT(R)(N) Ht: 5 ft 3 in Wt: 220 lbs Bra Size: 42d HR: 99 bpm BP: 111/81 mmHg BSA: 2.01 m2 Rhythm: NSR TID: 1.00 BMI: 38.9 History: chest pain..soa..palptayions..high bp..fatigue Procedure: Patient exercised on Kunal protocol 4:30 minutes and sec, resting heart rate 99 bpm, resting blood pressure 111/81 mmHg, with exercise maximum heart rate achived was 152 bpm which is 97 % of the maximum predicted heart rate and blood pressure was 172/70 mmHg. Test was stopped due to fatigue. Patient denied any complaint of chest pain. Patient has Average exercise capacity, achieved 7.0 METs of workload on treadmill, the blood pressure response to exercise was Normal. Cardiac Stress and Resting SPECT Images: Cardiac Stress and Resting SPECT images were obtained using technetium 99m Myoview 31.7 mCi stress and 10.15 mCi at rest. Resting and stress imaging in supine and prone positions demonstrate no evidence of fixed or reversible perfusion defects. Gated imaging demonstrates normal global and regional LV systolic function. LVEF is calculated at 74%. Conclusion: No evidence of fixed or reversible perfusion defects. Gated imaging demonstrates normal global and regional LV systolic function. LVEF is calculated at 74%. Electronically signed by : Cait Mcdaniels MD 02/19/2023 12:56:03
== END ==
PROVIDERS: PCP Family Medicine; Visit Provider Family Medicine
DX: R07.9 Chest pain, unspecified (principal)
CPT/HCPCS: 78452; 93017; 93018; A9502

== ENCOUNTER 2023-06-09 08:44 | Emergency (ER) | payer MEDICARE, SELFPAY ==
[2023-06-09] VITALS (10 sets, daily range): BP systolic 106–175; BP diastolic 57–107; PULSE 85–89; RESP 18; TEMP 36.6–37.1; O2SAT 95–98; BMI 37.8
--- NOTE | 2023-06-09 08:59 | PC.NURSE ---
DR DINH AT BEDSIDE
--- NOTE | 2023-06-09 09:19 | ED_ITS ---
Discharge Plan Disposition Patient Disposition: Home, Self-Care Prescriptions Prescriptions: No Action gabapentin 600 mg tablet 600 mg PO BID oxycodone [OxyContin] 20 mg tablet,oral only,ext.rel.12 hr 20 mg PO BID esomeprazole magnesium 40 mg capsule,delayed release(DR/EC) 40 mg PO DAILY Patient Comments: TAKE 1 CAPSULE BY MOUTH ONCE DAILY amlodipine 5 mg tablet See Rx Instructions .ROUTE .COMPLEX Qty: 90 0RF Dose Instruction: Take 1 tablet by mouth once daily Rx Instructions: Take 1 tablet by mouth once daily triamterene-hydrochlorothiazid 37.5-25 mg tablet See Rx Instructions .ROUTE .COMPLEX Qty: 90 0RF Dose Instruction: Take 1 tablet by mouth once daily Rx Instructions: Take 1 tablet by mouth once daily losartan 50 mg tablet See Rx Instructions .ROUTE .COMPLEX Rx Instructions: Take 1 tablet by mouth twice daily duloxetine 30 mg capsule,delayed release(DR/EC) See Rx Instructions .ROUTE .COMPLEX Rx Instructions: Take 1 capsule by mouth once daily Referrals Follow up/Referrals: Domenico Vidal MD [Staff Physician] - See instructions Cornell Roche MD [Primary Care Provider] - See instructions Activity Restrictions/Add. Instructions Additional Instructions/Restrictions: At this time it was felt you are safe to be discharged home. If new or worsening symptoms please do not hesitate to return the emergency department. Please call and schedule an appointment with Dr. Vidal as you are able, it may be worthwhile to be referred to physical therapy at [facility] for continued evaluation by your family doctor. Clinical Impressions Clinical Impression: Low back pain Instructions Patient Instructions: DI for Low Back Pain Discharge ED Provider: Ned Constantino General Adult HPI General Chief complaint: Back Pain/Injury Stated complaint: back pain, no accident Time Seen by Provider: 06/09/23 08:47 Mode of Arrival: Wheelchair Source of Information: Patient Limitations: Physical Limitations Description of Symptoms (Recalled from ER Triage Doc. by RN): back pain History of Present Illness HPI narrative: Patient is a 62-year-old female with past medical history of chronic back pain for 20 years who presents to the emergency department for evaluation of acute on chronic back pain. Patient was using a broom a few days ago which she attributes to worsening of her back pain. It is a bandlike distribution across her lumbar spine radiating down the lateral aspect of her right leg to her knee. No saddle anesthesia. Pain is similar in location, worse in severity than her baseline. Patient is on significant pain control daily with 20 mg of oxycodone twice a day and 600 mg of gabapentin twice a day. Patient goes to physical therapy at least once a year and has not been evaluated by Dr. Vidal. No history of trauma. No other acute complaints at this time. Related Data Home Medications Medication Instructions Recorded Confirmed gabapentin 600 mg tablet 600 mg PO BID nerve pain 05/29/22 03/05/23 oxycodone 20 mg tablet,crush 20 mg PO BID chronic back pain 05/29/22 03/05/23 resistant,extended release 12 hr (OxyContin) duloxetine 30 mg capsule,delayed See Rx Instructions .Route 01/21/23 03/05/23 release .COMPLEX Depression losartan 50 mg tablet See Rx Instructions .Route 01/21/23 03/05/23 .COMPLEX High Blood Pressure esomeprazole magnesium 40 mg 40 mg PO DAILY 03/05/23 03/05/23 capsule,delayed release Previous Rx's Medication Instructions Recorded amlodipine 5 mg tablet See Rx Instructions .Route 03/13/23 .COMPLEX #90 tabs triamterene 37.5 See Rx Instructions .Route 03/13/23 mg-hydrochlorothiazide 25 mg tablet .COMPLEX #90 tabs Allergies Allergy/AdvReac Type Severity Reaction Status Date / Time No Known Allergies Allergy Verified 06/06/23 08:21 [facility] Disclaimer: The information contained in this section may have been updated after the patient was seen, as this information can be updated by other users. Medical History Frequent falls GA (obstructive sleep apnea) Currently asymptomatic with significant improvement on residual AHI now down to 7.2. Advised to work on lifestyle modification including nutrition, weight loss Family History Other Coronary artery disease Social History Smoking Status: Never smoker alcohol intake: current substance use type: denies use current occupational status: disabled Travel in the last 8 weeks: None household members: family and children housing: house marital status: ROS Obtained: Yes Systems reviewed as appropriate & no additional complaints except as documented Physical Exam General General appearance: alert and in no apparent distress Head Head exam: atraumatic and normocephalic Eye Eye exam: Present PERRL ENT ENT exam: Present mucous membranes moist Neck Neck exam: Present normal inspection Chest Chest inspection: Present normal inspection and symmetric chest wall rise Respiratory Respiratory exam: Absent respiratory distress Cardiovascular Cardiovascular exam: Present regular rate and normal rhythm Abdominal Exam Abdominal exam: Present soft; Absent tenderness Extremities Exam Extremities exam: Present normal inspection Back Exam Back exam: Present other (Bilateral paraspinal lumbar tenderness and muscle spasm. 5 out of 5 strength bilateral lower extremities.) Neurological Exam Neurological exam: Present alert Psychiatric Psychiatric exam: Present normal affect Skin Skin exam: Present warm and dry Medical Decision Making Osman Inquiry Pt receiving controlled substance: No Vital Signs: 06/09/23 08:48 Temperature 98.7 F Temperature Source Oral Pulse Rate [Right] 89 Respiratory Rate 18 Blood Pressure [Right Arm] 118/74 Blood Pressure Mean [Right Arm] 88 02 Sat by Pulse Oximetry 98 Oxygen Delivery Method Room Air Orders (Tests/Meds): ED MEDICATIONS Discontinued Medications Generic Name Dose Route Start Last Admin Trade Name Sydney PRN Reason Stop Dose Admin Acetaminophen 1,000 mg 06/09/23 09:07 06/09/23 09:21 Acetaminophen 1,000mg/100ml Vial IV 06/09/23 09:08 1,000 mg ONCE ONE Administration Diazepam 5 mg 06/09/23 09:07 06/09/23 09:21 Diazepam 10mg/2ml Syringe IV 06/09/23 09:08 5 mg ONCE ONE Administration Ketorolac Tromethamine 30 mg 06/09/23 09:07 06/09/23 09:21 Ketorolac 30mg/Ml Vial IV 06/09/23 09:08 30 mg ONCE ONE Administration Medical Decision Narrative: In summary patient is a 62-year-old female with past medical history described above who presents to the emergency department for evaluation of acute on chronic back pain. Patient is hemodynamically stable nontoxic-appearing upon arrival, afebrile. Patient has no red flags on exam that would warrant emergent imaging although was considered will be deferred at this time. Extensive discussion was had at bedside as to patient's pain regimen and she was very receptive. Initial interventions include IV Tylenol, Toradol, diazepam. Upon repeat evaluation patient had significant resolution of symptoms was able to bear weight, has a walker at home. Given this patient is appropriate for disch arge at this time will be referred to Dr. Vidal on outpatient basis. Critical Care Critical Care Time Critical Care Time: No
[2023-06-09] MEDS: ACETAMINOPHEN 1,000MG/100ML VIAL 1000 MG IV (09:21)
[2023-06-09] MEDS: diazePAM 10MG/2ML SYRINGE 5 MG IV (09:21)
[2023-06-09] MEDS: KETOROLAC 30MG/ML VIAL 30 MG IV (09:21)
--- NOTE | 2023-06-09 09:31 | PC.NURSE ---
Rounded on pt. No needs voiced at this time. Call light remains within reach.
--- NOTE | 2023-06-09 09:34 | PC.NURSE ---
pt is now resting comfortably in bed.
--- NOTE | 2023-06-09 09:49 | PC.NURSE ---
pt reports that her pain is improved and is now 06/23
--- NOTE | 2023-06-09 10:30 | PC.NURSE ---
PT PROVIDED WATER AND BLANKET. CALL LIGHT WITHIN REACH
== END 2023-06-09 12:32 | disposition home or self-care (01) ==
PROVIDERS: Emergency Provider Emergency Medicine; PCP Family Medicine
DX: M54.50 Low back pain, unspecified (principal); M79.604 Pain in right leg; G47.33 Obstructive sleep apnea (adult) (pediatric)
CPT/HCPCS: 96374; 96375; 99284; J0131

== ENCOUNTER 2023-08-01 15:43 | Outpatient (CLI) | payer OTHER, SELFPAY ==
--- NOTE | 2023-08-01 15:54 | MR_ITS ---
FINAL REPORT CLINICAL HISTORY: LUMBAR RADICULOPTHY,RIGHT COMPARISON: None FINDINGS: Multiplanar MR imaging of the lumbar spine was performed without and with contrast. On the sagittal T2-weighted images, disc degeneration is seen throughout. The vertebral alignment is normal. There has been a prior right unilateral posterior fusion performed at the L5-S1 level with signal dropout from metallic hardware. There is no evidence of fracture. The conus is seen at approximately the L1 level and has an unremarkable appearance. L1-2: There is a small annular bulge present with mild bilateral neural foraminal narrowing. L2-3: There is a small annular bulge present with mild bilateral neural foraminal narrowing. L3-4: There is a small annular bulge present with mild bilateral neural foraminal narrowing. L4-5: There is a small annular bulge present with mild bilateral neural foraminal narrowing. L5-S1: There is a moderate annular bulge with significant endplate hypertrophy eccentric to the right, with moderate to severe right and moderate left neural foraminal narrowing. No abnormal contrast enhancement is identified. IMPRESSION: Mild degenerative change from L1-2 through the L4-5 level. L5-S1 moderate bulge with significant endplate hypertrophy greater on the right, moderate to severe right and moderate left neural foraminal narrowing. No enhancement is noted post contrast administration. Reviewed, Interpreted and Dictated by Scotty Bangura MD Transcribed by Annette Suggs Authenticated and [facility]
[2023-08-01 16:37] LABS: Blood Urea Nitrogen 11 mg/dl (7-17); Estimated Glomerular Filt Rate 63 ml/min (>60); GFR (African American) 77 ML/MIN (>60)
[2023-08-01] MEDS: GADOTERIDOL INJ 17ML SYRINGE 23 ML IV (17:33)
[2023-08-01] MEDS: SODIUM CHLORIDE 0.9% 10ML SYR (RAD ONLY) 10 ML IV (17:33)
== END 2023-08-01 23:59 | disposition home or self-care (01) ==
LOC: RAD 15:44
PROVIDERS: PCP Family Medicine; Visit Provider Family Medicine
DX: M54.16 Radiculopathy, lumbar region (principal)
CPT/HCPCS: 36415; 72158; 76376; 82565; 84520; A9576

== ENCOUNTER 2024-05-22 10:40 | Outpatient (CLI) | payer MEDICARE, SELFPAY ==
--- NOTE | 2024-05-22 10:43 | MM_ITS ---
PROCEDURE INFORMATION: Exam: MG Bilateral Screening 3D Mammography Exam date and time: 05/22/2024 11:04 AM Age: 63 years old Clinical indication: Screening examination TECHNIQUE: Imaging protocol: Bilateral Screening tomosynthesis and 2D mammography including computer-aided detection (CAD) when performed. COMPARISON: 1. MG MM DIG SCREENING MAMM BI W/CAD 12/14/2022 10:18 AM 2. MG MM DIG SCREENING MAMM BI W/CAD 03/14/2021 3:53 PM FINDINGS: MAMMOGRAPHY: Breast composition: There are scattered areas of fibroglandular density. Mass: None. Architectural distortion: None. Calcifications: No suspicious calcifications. Asymmetric density: None. Skin thickening: None. Axillary adenopathy: None. IMPRESSION: No mammographic evidence of malignancy. Annual screening is recommended unless otherwise clinically indicated. ASSESSMENT: BI-RADS Category 1: Negative.
== END 2024-05-22 23:59 | disposition home or self-care (01) ==
LOC: RAD 10:41
PROVIDERS: PCP Family Medicine; Visit Provider Family Medicine
DX: Z12.31 Encounter for screening mammogram for malignant neoplasm of breast (principal); N60.19 Diffuse cystic mastopathy of unspecified breast
CPT/HCPCS: 77063; 77067

== ENCOUNTER 2024-07-07 12:47 | Day surgery (SDC) | payer MEDICARE, SELFPAY ==
[2024-07-07 13:27] VITALS: BMI 37.7
[2024-07-07 13:34] VITALS: BP 140/75; PULSE 96; RESP 18; TEMP 36.4; O2SAT 94
[2024-07-07] MEDS: LACTATED RINGERS 1000ML 1,000 ML 50 ML IV (13:44)
--- NOTE | 2024-07-07 13:55 | EXP.ANES.CKL ---
[facility] Disclaimer: The information contained in this section may have been updated after the patient was seen, as this information can be updated by other users. Medical History GA (obstructive sleep apnea) Frequent falls Surgical History (Updated 07/07/24 @ 13:32 by Kristin Singh RN) H/O tubal ligation H/O total knee replacement H/O breast augmentation Previous back surgery Family History (Updated 07/07/24 @ 13:33 by Kristin Singh RN) Other Coronary artery disease No significant family history Social History (Updated 07/07/24 @ 13:33 by Kristin Singh RN) Smoking Status: Never smoker alcohol intake: current alcohol intake frequency: holidays/special occasions only substance use type: denies use current occupational status: disabled Travel in the last 8 weeks: None household members: family and children housing: house marital status: Have you lived/traveled outside [place] in past 30 days?: No Contact w/someone who lives/traveled outside US past 30 days?: No Exposure to someone with infectious disease in past 14 days?: No Do you have a fever (greater than 100.4 F or 38 C)?: No Have you tested positive for COVID-19: No Exposed to someone with COVID-19 in past 14 days?: No Do you have a sore throat?: No Do you have a cough?: No Do you have any weakness?: No Do you have any diarrhea?: No Are you experiencing any unusual bleeding?: No Do you have any muscle aches/pain?: No Do you have any abdominal pain?: No Are you experiencing loss of taste or smell?: No [facility] Anesthesia Checklist Patient Identification Patient Identification: Arm Band Structural Data Admitted From: Home Planned Operative Procedure/s: Colonoscopy Consent for Planned Operative Procedure(s) Verified: Yes Verified Documents: Surgical Consent and History and Physical NPO Status Verified Time NPO: 00:00 Additional verifications Anesthesia Reactions: No Hx Blood Transfusions: No Blood Transfusion Reaction: No Airway Assessment Mallampati Score:: Class II C-Spine Mobility Assessed: Yes TMJ Mobility Assessed: Yes Dentition: Good Dentition Neurological Assessment Level of Consciousness: Awake, Alert and Appropriate Anesthesia Plan Anesthesia Risk discussed: Yes Anesthesia Plan: Verified ASA Class: II Anesthesia Type: MAC
[2024-07-07 13:56] VITALS: O2SAT 100
--- NOTE | 2024-07-07 13:58 | P.HP_ITS ---
History of Present Illness *Admission Date: 07/07/24 *History of present illness: Mrs. Mireles is a 63-year-old female who is here for initial screening colonoscopy. The examination is deemed medically necessary for screening colonoscopy. The patient has been seen, interviewed and examined prior to the procedure by both myself and the anesthesia provider. [facility] Disclaimer: The information contained in this section may have been updated after the patient was seen, as this information can be updated by other users. Medical History (Updated 07/07/24 @ 14:07 by Param Miranda II, MD) GA (obstructive sleep apnea) Frequent falls Surgical History (Updated 07/07/24 @ 13:32 by Kristin Singh RN) H/O tubal ligation H/O total knee replacement H/O breast augmentation Previous back surgery Family History (Updated 07/07/24 @ 13:33 by Kristin Singh RN) Other Coronary artery disease No significant family history Social History (Updated 07/07/24 @ 13:33 by Kristin Singh RN) Smoking Status: Never smoker alcohol intake: current alcohol intake frequency: holidays/special occasions only substance use type: denies use current occupational status: disabled Travel in the last 8 weeks: None household members: family and children housing: house marital status: Have you lived/traveled outside US in past 30 days?: No Contact w/someone who lives/traveled outside US past 30 days?: No Exposure to someone with infectious disease in past 14 days?: No Do you have a fever (greater than 100.4 F or 38 C)?: No Have you tested positive for COVID-19: No Exposed to someone with COVID-19 in past 14 days?: No Do you have a sore throat?: No Do you have a cough?: No Do you have any weakness?: No Do you have any diarrhea?: No Are you experiencing any unusual bleeding?: No Do you have any muscle aches/pain?: No Do you have any abdominal pain?: No Are you experiencing loss of taste or smell?: No Other Medical History Have you received the Flu Vaccine for this season: No Have you received the Pneumonia Vaccine: Yes Review of Systems Review of Systems Review of systems (narrative): Negative *Cardiovascular Comments: Negative *Gastrointestinal Comments: Negative *Genitourinary Comments: Negative *Musculoskeletal Comments: Negative *Neurologic Comments: Negative Meds Home Medications and Allergies Home Medications ?Medication ?Instructions ?Recorded ?Confirmed ?Type gabapentin 600 mg tablet 600 mg PO BID nerve pain 05/29/22 07/07/24 History oxycodone 20 mg tablet,crush 20 mg PO BID chronic back pain 05/29/22 07/07/24 History resistant,extended release 12 hr (OxyContin) duloxetine 30 mg capsule,delayed See Rx Instructions .Route 01/21/23 07/07/24 History release .COMPLEX Depression losartan 50 mg tablet See Rx Instructions .Route 01/21/23 07/07/24 History .COMPLEX High Blood Pressure esomeprazole magnesium 40 mg 40 mg PO DAILY 03/05/23 07/07/24 History capsule,delayed release amlodipine 5 mg tablet See Rx Instructions .Route 03/13/23 07/07/24 Rx .COMPLEX #90 tabs triamterene 37.5 See Rx Instructions .Route 03/13/23 07/07/24 Rx mg-hydrochlorothiazide 25 mg tablet .COMPLEX #90 tabs methocarbamol 1,000 mg tablet 1,000 mg PO TID muscle spasm #9 06/09/23 07/07/24 Rx tabs New Prescriptions to Start Prescriptions: Allergies Allergy/AdvReac Type Severity Reaction Status Date / Time No Known Allergies Allergy Verified 07/07/24 13:29 Exam Data for Last 24 hours Vital signs and Labs for Last 24 Hours: Temp Pulse Resp BP Pulse Ox O2 Del Method O2 Flow Rate 97.5 F L 96 H 18 140/75 94 L Nasal Cannula 5 07/07/24 13:34 07/07/24 13:34 07/07/24 13:34 07/07/24 13:34 07/07/24 13:34 07/07/24 13:56 07/07/24 13:56 I & O for Last 24 hours: Intake & Output 07/04/24 07/05/24 07/06/24 07/07/24 23:59 23:59 23:59 23:59 Weight 213 lb *Routine HEENT Exam Head: Present normocephalic Eye: Present EOMI and PERRL ENT: Present mucous membranes moist *Routine Neck Exam Neck: Present supple *Routine Respiratory Exam Respiratory: Present CTA bilaterally *Routine Cardiovascular Exam Cardiovascular: Present RRR *Routine Abdominal Exam Abdominal: Present soft and normoactive bowel sounds; Absent tenderness *Routine Rectal Exam Rectal:: deferred *Routine Genitalia Exam Genitalia:: deferred *Routine Extremities Exam Extremities: Absent cyanosis, clubbing or edema *Routine Skin Exam Skin: Present warm; Absent rash *Routine Neurological Exam Neurological: Present alert and oriented X3 Assessment and Plan *Assessment and plan (1) Screening for colon cancer: Status: Acute Category: Medical Code(s): Z12.11 - Encounter for screening for malignant neoplasm of colon Plan A/P: 1. Screening for colon cancer is the preprocedural diagnosis. The patient will be anesthetized/sedated using MAC sedation. The patient has been seen and examined. Cardiac and lung assessment prior to the examination is stable. Proceed with planned screening colonoscopy
--- NOTE | 2024-07-07 14:07 | HMH.PROCNOTE ---
[facility] Procedure Note Date: 07/07/24 Time: 14:32 Procedure Note:: Colonoscopy Procedure Report: Colonoscopy with cold snare polypectomy Endoscopist: Param Miranda II, MD Referring physician: Gian Roche MD Date of Procedure: July 07, 2024 Equipment: Olympus 190 variable stiffness pediatric colonoscope Sedation: MAC sedation Indication: Mrs. Mireles is a 63-year-old female who is here for initial screening colonoscopy. She reports no abdominal pain, weight loss, change in her bowel habits or rectal bleeding. She reports no family history of colon cancer. Procedure: Prior to the procedure, a history and physical exam was performed, and patient's medications and allergies were reviewed. The risks, benefits and alternatives of the sedation and procedure were discussed with the patient. All questions were answered and informed consent was obtained. The patient was brought to the procedure room. Patient identification and proposed procedure were verified by the physician and the nurse. The patient was placed in a left lateral decubitus position and the scope was passed under direct vision. Throughout the procedure, the patient's blood pressure, pulse, and oxygen saturations were monitored continuously. The colonoscopy was accomplished without difficulty. The patient tolerated the procedure well. Findings: On digital rectal examination there was normal rectal tone. There were no external hemorrhoids. The colonoscope was introduced through the anal canal to the rectum and advanced to the cecum. The ileocecal valve and appendiceal orifice were identified. The scope was advanced a short distance into the ileum which appeared grossly normal. The scope was then withdrawn into the colon. There were 8 polyps (cecum x 1 (4 mm), ascending x 3 (3, 4 and 5 mm), descending x 3 (3, 4 and 4 mm) and sigmoid x 1 (4 mm)). These were all removed via cold snare polypectomy. The remaining cecum, ascending, transverse, descending, sigmoid and rectum were grossly normal. There were no mucosal abnormalities identified. Upon retroflexion within the rectum there were grade 1-2 internal hemorrhoids. The preparation was excellent throughout with Burley Preparation Score of 9. The cecal time was 14 minutes. Impression: 1. Diminutive colonic polyps x 8 2. Grade 1-2 internal hemorrhoids Plan: I will follow-up the polyp histology and recommend repeat surveillance colonoscopy again in 3 years if the polyps are adenomatous. I would encourage bulking psyllium fiber supplementation on a maintenance basis.
[2024-07-07 14:34] VITALS: BP 133/84; PULSE 87; RESP 17; TEMP 36.6; O2SAT 99
[2024-07-07 14:44] VITALS: BP 124/86; PULSE 86; RESP 17; O2SAT 99
[2024-07-07 14:54] VITALS: BP 155/100; PULSE 85; RESP 16; O2SAT 98
[2024-07-07 15:04] VITALS: BP 135/95; PULSE 86; RESP 17; O2SAT 99
== END 2024-07-07 15:42 | disposition home or self-care (01) ==
PROVIDERS: PCP Family Medicine; Visit Provider Internal Medicine Gastroenterology
PROC: 0DJD8ZZ Inspection of Lower Intestinal Tract, Via Natural or Artificial Opening Endoscopic (ICD-10-PCS; CPT 45378; principal; 2024-07-07 14:30)
DX: K63.5 Polyp of colon (principal); K64.8 Other hemorrhoids; Z12.11 Encounter for screening for malignant neoplasm of colon
CPT/HCPCS: 45385; J7120

== ENCOUNTER 2024-10-06 13:01 | Outpatient (CLI) | payer MEDICARE, SELFPAY ==
--- OUTSIDE RECORDS SUMMARY | 2024-08-15 06:30 | XMS_ITS ---
Author Organization [facility] Address [address] [place] [id number] Care Team Providers Care Book Canvasser Name Role Phone Jody Roche Primary Care Provider Allergies Allergen (clinical drug ingredient) Drug/Non Drug Allergy documented on EMR Reaction Allergy Type Onset Date Status hydrochlorothiazide / lisinopril Lisinopril-hydro CHLOROthiazide rash, mouth tingling Drug Allergy Active Reason For Referral Reason low back pain Diagnosis 1 Low back pain due to displacement of intervertebral disc (M51.26) [facility] Referring Provider First Name Jody Springer Referring Provider Last Name Melchor Referring Provider Speciality Family Pra ctice Referred Provider Specialty Physical The rapist General Notes Jacquelyn Rios 2024 11:15:06 AM > patient works until 12pm every day; would like an afternoon appointment as soon as possible Referral Priority Routine REASON FOR VISIT pain in hip Medications Medication SIG (Take, Route, Frequency, Duration) Notes Start Date End Date Status Gabapentin 600 MG 1 tablet Orally Thre e times a day for 30 day(s) 06/23/2024 Active Esomeprazole Magnesium 40 MG 1 capsule O rally Once a day 02/08/2023 Active Losartan Potassium 50 MG 1 tab(s) orally Two times a day for 30 days Active amLODIPine Besylate 5 MG 1 tab(s) orally once a day for 90 Active OxyCONTIN 20 MG 1 tab(s) orally 2 ti mes a day for 30 days 07/18/2024 Active Ibuprofen 800 MG 1 tablet with food o r milk as needed Orally three times a day as needed 06/11/2023 Active Clotrimazole-Betamethasone 1-0.05 % 1 application Externally Twice a day 07/26/2023 Active Cyclobenzaprine HCl 10 MG 1 tablet at be dtime as needed Orally three times a day as needed 06/11/2023 Active Clotrimazole 1 % 1 joe applied topica lly 2 times a day for 7 day(s) Active Cymbalta 30 MG 1 cap(s) orally once a day for 90 days Active CPAP Supplies - as directed as directed 01/14/2024 Active Maxzide-25 37.5-25 MG 1 tab(s) orally on ce a day for 90 Active Tylenol 8 Hour 650 MG 1 tab Orally every 8 hrs Active Problems Problem Type SNOMED Code ICD Code Onset Dates Problem Status W/U Status Risk Notes Problem [id number] BMI 38.0-38.9,ad ult (Z68.38) Active confirmed Vital Signs Blood pressure systolic 140 mm Hg 08/16/19 25 Blood pressure diastolic 80 mm Hg 025 Heart Rate 102 /min 08/15/2024 Height 62.75 in 08/15/2024 Weight 216.0 lbs 08/15/2024 BMI 38.56 kg/m2 08/15/2024 Encounters Encounter Location Date [facility] [address] [id number] 08/15/2024 Jody Roche Low back pain due to displacement of intervertebral disc M51.26 ; Low back pain M54.5 ; Other chronic pain G89.29 ; Essential hypertension I10 ; Type 2 diabetes mellitus without complication, unspecified whether half-way insulin use E11.9 ; 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0-38.9,adult (ICD-10 - Z68.38) 08/15/2024 Lumbar back pain (ICD-10 - M54.50) Plan Of Treatment Referrals Referral Date Details 08/15/2024 08/15/2024, low back pain Next Appt Details Follow Up: office surgery, Suzie huang: Provider Name:Jody Suarez er, 10/20/2024 10:45:00 AM, [address], [address], [place], [place], [id number], Provider Name:Jody Suarez , 12/22/2024 10:30:00 AM, [address], [address], [place], [place], [id number], Progress Notes * Luly MIRELESOB:1960 (63 yo F)Acc No.[id number]:08/15/2024 Progress Notes Patient: Patti Ventura Provider: Jody Roche M.D. :1960 A ge:63 Y S ex:Female Date:08/15/2024 Address:[place], [id number] Subjective: * Chief Complaints: * P ain in hip * HPI: H ip/Thigh: The pt is here today with c/o bilateral hip pain. Pt states the pain has been constant for about 7-10 days and is worse in the right today. Pt states she was on a cruise and the pain started right before cruise and has not gotten any better. EMG/NCV May 2022 reviewed as well as past MRI. 63 year old female presents with c/o hip pain. * ROS: D ERMATOLOGY: no R dillon. n o H henry. G ASTROENTEROLOGY: no N ausea. n o V omiting. n o D iarrhea.? U ROLOGY: no D ifficulty urinating. n o B lood in urine. * Medical History: * Surgical History: B reast Reduction 1989Tubal Ligation 1990Cholecystectomy 1997rectal fissure repair 05/05/2005Right L5-S1 facetectomy, laminectomy, discectomy with fixation. Dr. Petit 11/29/2009left knee arthroplasty, Art Reeves Jasbir 11/12/2017rig knee replacement, Art Dozier [facility] 02/2018 * Hospitalization/Major Diagno stic Procedure: N o Hospitalization History. * Family History: F ather: alive 85 yrs, coronary artery disease, 4 vessel CABG. M other: alive 85 yrs. P aternal Grand Father: , diabetes. 2 brother(s) , 1 sister(s) . 1 daughter(s) . . * Social History: C URRENT TOBACCO USE S moking Status: Patient does NOT smoke. C affeine: yes, frequency:. Marital Status: Single, . no Past smoking status, Smoking status: Does not smoke, Former Smoker: Yes, Quit smokin, Smoking pack year history: 1. no Recreational drug use. Alcohol: socially, Type: , Frequency: ,Years: , Determination:. * Medications: T akingCPAP Supplies - - as directed as directedMaxzide-25 37.5-25 MG Tablet 1 tab(s) orally once a dayTylenol 8 Hour 650 MG Tablet Extended Release 1 tab Orally every 8 hrsIbuprofen 800 MG Tablet 1 tablet with food or milk as needed Orally three times a day as neededClotrimazole-Betamethasone 1-0.05 % Cream 1 application Externally Twice a dayClotrimazole 1 % Cream 1 joe applied topically 2 times a dayCymbalta 30 MG Capsule Delayed Release Particles 1 cap(s) orally once a dayCyclobenzaprine HCl 10 MG Tablet 1 tablet at bedtime as needed Orally three times a day as neededLosartan Potassium 50 MG Tablet 1 tab(s) orally Two times a dayamLODIPine Besylate 5 MG Tablet 1 tab(s) orally once a dayGabapentin 600 MG Tablet 1 tablet Orally Three times a dayEsomeprazole Magnesium 40 MG Capsule Delayed Release 1 capsule Orally Once a dayOxyCONTIN 20 MG Tablet ER 12 Hour Abuse-Deterrent 1 tab(s) orally 2 times a dayMedication List reviewed and reconciled with the patientTaking CPAP Supplies - - as directed as directedTaking Maxzide-25 37.5-25 MG Tablet 1 tab(s) orally once a dayTaking Tylenol 8 Hour 650 MG Tablet Extended Release 1 tab Orally every 8 hrsTaking Ibuprofen 800 MG Tablet 1 tablet with food or milk as needed Orally three times a day as neededTaking Clotrimazole-Betamethasone 1-0.05 % Cream 1 application Externally Twice a dayTaking Clotrimazole 1 % Cream 1 joe applied topically 2 times a dayTaking Cymbalta 30 MG Capsule Delayed Release Particles 1 cap(s) orally once a dayTaking Cyclobenzaprine HCl 10 MG Tablet 1 tablet at bedtime as needed Orally three times a day as neededTaking Losartan Potassium 50 MG Tablet 1 tab(s) orally Two times a dayTaking amLODIPine Besylate 5 MG Tablet 1 tab(s) orally once a dayTaking Gabapentin 600 MG Tablet 1 tablet Orally Three times a dayTaking Esomeprazole Magnesium 40 MG Capsule Delayed Release 1 capsule Orally Once a dayTaking OxyCONTIN 20 MG Tablet ER 12 Hour Abuse-Deterrent 1 tab(s) orally 2 times a dayMedication List reviewed and reconciled with the patient * Allergies: L isinopril-hydroCHLOROthiazide: rash, mouth tinglingno[Allergies Verified] Objective: * Vitals: W t: 216.0, Temp: 98.1, BP: 140/80, HR: 102, Nurse: KEMAR, Ht: 62.75, BMI:38.56. * Examination: G eneral Examination: General Appearance: s eems more comfortable today. H EENT: t he facial area has healed perfectly. No abnormality seen at all. O ral cavity:?no lesions, mucosa moist and WNL, no erythema. N kia: s upple, no lymphadenopathy. C hest: n ormal shape and expansion, w ound of the chest has healed w ith no evidence of recurrence. H eart: R SR. L ungs: c lear to auscultation. A bdomen: soft and nontender, no organomegaly or masses. N eurologic Exam: N o change in exam. P eripheral pulses: n ormal . B ack: d ecreased lumbar lordosis, tender SI joint on right, pain across lumbar area. E xtremities: n o leg edema. . D ermatology: Extremities: p igmented lesion of t he right posterior calf, likely diana keratosis. Assessment: * Assessment: 1. L ow back pain - M54.5 2 . L ow back pain due to displacement of intervertebral disc - M51.26 3 . O ther chronic pain - G89.29 4 . E ssential hypertension - I10 5 . Type 2 diabetes mellitus without complication, unspecified whether half-way insulin use - E11.9 6 . S quamous cell carcinoma of cheek - C44.329 7 . B PR 38.0-38.9,adult - Z68.38?8. L umbar back pain - M54.50 Plan: * Treatment: * Procedure Codes: G 2211 Complex e/m visit add [id number] MOST RECENT SYSTOLIC BP >= 140MM [id number] MOST RECENT DIASTOLIC BP < 90MM HG * Follow Up: o ffice surgery * Images: Billing Information: * Visit Code: 85580 Office Visit, Est Pt., Level 4. * Procedure Codes: G2211 Complex e/m visit add on. G8753 MOST RECENT SYSTOLIC BP >= 140MM HG. G8754 MOST RECENT DIASTOLIC BP < 90MM HG. * Sign off status: Completed true * Provider: Jody Roche M.D. Date: 0 08/15/2024 Generated for Raheemi didi/Jaspal/eTransmitting on: 0 10/06/2024 01:16 PM EDT History and Physical Notes * HPI (History of Present Illness) Category Sub-Category Detail Notes Category Not es Hip/Thigh hip pain Examination Category Sub-Category Detail Notes Category Not es General Examination HEENT: the facial a boni has healed perfectly. No abnormality seen at all Heart: RSR Lungs: clear to auscultatio n Abdomen: soft and nontender, no organomegaly or masses Extremities: no leg edema. General Appearance: seems more comfortab le today Skin: Neurologic Exam: No change in exam Neck: supple, no lymphaden opathy Oral cavity: no lesions, mucosa m oist and WNL, no erythema Peripheral pulses: normal Back: decreased lumbar snow dosis, tender SI joint on right, pain across lumbar area Chest: normal shape and exp ansion, wound of the chest has healed with no evidence of recurrence Dermatology Extremities: pigmented lesion of the right posterior calf, likely diana keratosis Consultation Request Notes Referral Date Referring Provider Referred Provider Not es 08/15/2024 Jody Roche , low back p ain
--- OUTSIDE RECORDS SUMMARY | 2024-09-15 10:45 | XMS_ITS ---
Author Organization [facility] Address [address] [place] [id number] Care Team Providers Care Curb Setter Name Role Phone Jody Roche Primary Care Provider Allergies Allergen (clinical drug ingredient) Drug/Non Drug Allergy documented on EMR Reaction Allergy Type Onset Date Status hydrochlorothiazide / lisinopril Lisinopril-hydro CHLOROthiazide rash, mouth tingling Drug Allergy Active REASON FOR VISIT 3 month ckup Medications Medication SIG (Take, Route, Frequency, Duration) Notes Start Date End Date Status CPAP Supplies - as directed as directed 01/14/2024 Active amLODIPine Besylate 5 MG Take 1 tablet b y mouth once daily for 90 days for 90 Active OxyCONTIN 20 MG 1 tab(s) orally 2 times a day for 30 days 08/28/2024 Active Tylenol 8 Hour 650 MG 1 tab Orally every 8 hrs Active Triamterene-HCTZ 37.5-25 MG Take 1 tablet by mouth once daily for 90 Active Losartan Potassium 50 MG 1 tab(s) orally Two times a day for 30 days Active Cyclobenzaprine HCl 10 MG 1 tablet at be dtime as needed Orally three times a day as needed 06/11/2023 Not-Taking Esomeprazole Magnesium 40 MG 1 capsule Orally Once a day 02/08/2023 Active Gabapentin 600 MG 1 tablet Orally Thre e times a day for 30 day(s) 06/23/2024 Active Cymbalta 30 MG 1 cap(s) orally once a day for 90 days Active Clotrimazole 1 % 1 joe applied topically 2 times a day for 7 day(s) Active Clotrimazole-Betamethasone 1-0.05 % 1 application Externally Twice a day 07/26/2023 Active Ibuprofen 800 MG 1 tablet with food o r milk as needed Orally three times a day as needed 06/11/2023 Active Vital Signs Blood pressure systolic 130 mm Hg 09/16/19 25 Blood pressure diastolic 80 mm Hg 025 Heart Rate 103 /min 09/15/2024 Height 62.75 in 09/15/2024 Weight 214.6 lbs 09/15/2024 BMI 38.31 kg/m2 09/15/2024 Encounters Encounter Location Date Provider Diagnosis [facility] [address] [facility] [address] [place] [id number] 09/15/2024 Jody Roche Low back pain due to displacement of intervertebral disc M51.26 ; Low back pain M54.5 ; Other chronic pain G89.29 and BMI 38.0-38.9,adult Z68.38 Assessments Encounter Date Diagnosis (ICD Code) Assessment Notes Treatment Notes Treatment Clinical Notes Section Notes 09/15/2024 Low back pain due to displacement of intervertebral disc (ICD-10 - M51.26) 09/15/2024 Low back pain (ICD-10 - M54.5) 09/15/2024 Other chronic pain (ICD-10 - G89.29) 09/15/2024 BMI 38.0-38.9,adult (ICD-10 - Z68.38) Plan Of Treatment Next Appt Details Follow Up: 3 Months, Reason: Provider Name:Jody Suarez , 10/20/2024 10:45:00 AM, [address] [facility] [address], [place], [id number], Provider Name:Jody Suarez , 12/22/2024 10:30:00 AM, [address] [facility] [address], [place], [id number], Progress Notes * Luly MIRELESOB:1960 (63 yo F)Acc No.[id number]:09/15/2024 Progress Notes Patient: Patti SPRAGUE Provider: Jody Roche M.D. :1960 A ge:63 Y S ex:Female Date:09/15/2024 Address:[address] [place], [id number] Subjective: * Chief Complaints: * 1 . 3 month ckup. * HPI: H PI: 63 year old female presents with c/o Patient is here today for?Pt sts she is here today for a 3 month check up and for workers comp. Pt sts she is still in therapy and sts she has not gotten anywhere with that yet. * ROS: D ERMATOLOGY: no R dillon. n o H henry. G ASTROENTEROLOGY: no N ausea. n o V omiting. n o D iarrhea.? U ROLOGY: no D ifficulty urinating. n o B lood in urine. * Medical History: H ypertension, Chronic back pain, Lumbar Disc Disease, 10/04/2016 neg Cardiolyte GXT, 10/04/2016 Echocardiogram, normal EF, 10/04/2016 US liver, fatty infiltration. * Surgical History: B reast Reduction 1989, Tubal Ligation 1990, Cholecystectomy 1997, rectal fissure repair 05/05/2005, Right L5-S1 facetectomy, laminectomy, discectomy with fixation. Dr. Petit 11/29/2009, left knee arthroplasty, Art Reeves Jasbir 11/12/2017, right knee replacement, Art Dozier [facility] 02/2018. * Family History: F ather: alive 85 yrs, coronary artery disease, 4 vessel CABG. M other: alive 85 yrs. P aternal Grand Father: , diabetes. 2 brother(s) , 1 sister(s) . 1 daughter(s) . . * Social History: C URRENT TOBACCO USE S moking Status: Patient does NOT smoke. C affeine: yes, frequency:. Marital Status: Single, . Past smoking status: no, Smoking status: Does not smoke, Former Smoker: Yes, Quit smokin, Smoking pack year history: 1. Recreational drug use: no. Alcohol: socially, Type: , Frequency: ,Years: , Determination:. * Medications: T aking CPAP Supplies - - as directed as directed , Taking Tylenol 8 Hour 650 MG Tablet Extended Release 1 tab Orally every 8 hrs , Taking Ibuprofen 800 MG Tablet 1 tablet with food or milk as needed Orally three times a day as needed , Taking Clotrimazole-Betamethasone 1-0.05 % Cream 1 application Externally Twice a day , Taking Clotrimazole 1 % Cream 1 joe applied topically 2 times a day , Taking Cymbalta 30 MG Capsule Delayed Release Particles 1 cap(s) orally once a day , Taking Losartan Potassium 50 MG Tablet 1 tab(s) orally Two times a day , Taking Gabapentin 600 MG Tablet 1 tablet Orally Three times a day , Taking Esomeprazole Magnesium 40 MG Capsule Delayed Release 1 capsule Orally Once a day , Taking OxyCONTIN 20 MG Tablet ER 12 Hour Abuse-Deterrent 1 tab(s) orally 2 times a day , Taking amLODIPine Besylate 5 MG Tablet Take 1 tablet by mouth once daily for 90 days , Taking Triamterene- HCTZ 37.5-25 MG Tablet Take 1 tablet by mouth once daily , Not-Taking Cyclobenzaprine HCl 10 MG Tablet 1 tablet at bedtime as needed Orally three times a day as needed , Medication List reviewed and reconciled with the patient * Allergies: L isinopril-hydroCHLOROthiazide: rash, mouth tingling. Objective: * Vitals: W t: 214.6, Temp: 98.6, BP: 130/80, HR: 103, Nurse: shyanne, Ht: 62.75, BMI:38.31. * Examination: G eneral Examination: General Appearance: s eems more comfortable today. HEENT: t he facial area has healed perfectly. No abnormality seen at all. Oral cavity: n o lesions, mucosa moist and WNL, no erythema. Neck: s upple, no lymphadenopathy. Chest: n ormal shape and expansion, w ound of the chest has healed w ith no evidence of recurrence. Heart: R SR. Lungs: c lear to auscultation. Abdomen: soft and nontender, no organomegaly or masses.? Neurologic Exam: N o change in exam. Peripheral pulses: n ormal . Back: d ecreased lumbar lordosis, tender SI joint on right, pain across lumbar area. Extremities: n o leg edema. . ? Assessment: * Assessment: 1. L ow back pain due to displacement of intervertebral disc - M51.26 (Primary) ?2. L ow back pain - M54.5 3 . O ther chronic pain - G89.29 ?4. B NE 38.0-38.9,adult - Z68.38 Plan: * Treatment: * Procedure Codes: G 2211 Complex e/m visit add on, 1036F TOBACCO NON-USER, G8783 BP SCR PRFRM RCMDD DEFIND SCR INTVL, G8752 MOST RECENT SYSTOLIC BP < 140MM HG, G8754 MOST RECENT DIASTOLIC BP < 90MM HG * Follow Up: 3 Months * Billing Information: * Visit Code: 19592 Office Visit, Est Pt., Level 3. * Procedure Codes: G2211 Complex e/m visit add on. 1036F TOBACCO NON-USER. G8783 BP SCR PRFRM RCMDD DEFIND SCR INTVL. G8752 MOST RECENT SYSTOLIC BP < 140MM HG. G8754 MOST RECENT DIASTOLIC BP < 90MM HG. * Electronic signature of Jody Roche MD on 10/06/2024 at 01:16 PM EDT Sign off status: Pending * Provider: Jody Roche M.D. Date: 0 09/15/2024 Generated for Mina tolbert/Jaspal/eTransmitting on: 10/06/2024 01:16 PM EDT History and Physical Notes * HPI (History of Present Illness) Category Sub-Category Detail Notes Category Not es HPI Patient is here today for Pt sts she is here today for a 3 month check up and for workers comp. Pt sts she is still in therapy and sts she has not gotten anywhere with that yet Examination Category Sub-Category Detail Notes Category Not [...]
--- NOTE | 2024-10-06 13:05 | XR_ITS ---
FINAL REPORT CLINICAL HISTORY: RT HIP PAIN FINDINGS: Three views of the right hip demonstrate no acute fracture or dislocation. There are mild degenerative changes. There is lucency of the acetabular roof compatible with degenerative subchondral cysts. 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 Reviewed, Interpreted and Dictated by Cornell Shepherd MD Transcribed by Danielle Mckeon Authenticated and [facility]
--- OUTSIDE RECORDS SUMMARY | 2024-10-06 13:16 | XMS_ITS ---
Author Organization Unknown TREATMENT PLAN [facility] Start Date Provider Encounter for Check-up [id number] [facility]
--- OUTSIDE RECORDS SUMMARY | 2024-10-06 13:17 | XMS_ITS | Clinical Summary ---
Author Organization Healthcare Address [address] [place] [address] Care Team Providers Care Ticket Clerk Name Role Phone Abelardo Roche MD Primary Care Provider [phone] JoelgregoryWilma LIEUTENANT COLONEL Unavailable [phone] Allergies No known active allergies Medications amLODIPine (Norvasc) 5 MG tablet Take 1 tablet (5 mg) by mouth 1 (one) time each day. Active gabapentin (Neurontin) 600 MG tablet 4 Active losartan (Cozaar) 50 MG tablet Take 1 tablet (50 mg) by mouth 2 (two) times a day. Active OxyCONTIN 20 MG 12 hr tablet 4 Active methocarbamol (Robaxin) 500 MG tablet TAKE 2 TABLETS BY MOUTH THREE TIMES DAILY FOR MUSCLE SPASM 4 Active clotrimazole (Lotrimin) 1 % cream APPLY CREAM TOPICALLY TWICE DAILY FOR 7 DAYS 4 Active acetaminophen (Tylenol) 325 MG tablet 8 Active diclofenac (Voltaren) 75 MG EC tablet 8 Active triamterene-hyd rochlorothiazid e (Maxzide-25) 37.5-25 MG tablet .COMPLEX 8 Active Family History Medical History Relation Name Comments Heart Problem Other Relation Name Status Comments Other Social History Tobacco Use Types Packs/Day Years Used Date Smoking Tobacco: Former Smokeless Tobacco: Never Tobacco Cessation:Counseling Given: Not Answered Alcohol Use Standard Drinks/Week Comments Not Currently 0 (1 standard drink = 0.6 oz pur e alcohol) Comments Unknown Sex and Gender Information Value Date Recorded Sex Assigned at Not on file Legal Sex Female 7:57 PM EDT Gender Identity Not on file Sexual Orientation Not on file Last Filed Vital Signs Vital Sign Reading Time Taken Comments Blood Pressure 134/86 08/28/2023 1:49 PM EDT Pulse 96 04/30/2018 11:15 AM EST Temperature - - Respiratory Rate - - Oxygen Saturation - - Inhaled Oxygen Concentration - - Weight 107 kg (236 lb 9.6 oz) 08/28/2023 1:49 PM EDT Height 157.5 cm (5' 2 ) 08/28/2023 1:49 PM EDT Body Mass Index 43.27 08/28/2023 1:49 PM EDT Plan of Treatment Health Maintenance Due Date Last Done Comments [facility]-Depression Screening 1960 [facility]-Infant/Child/Adol SDOH Screenings 1960 [facility]- SDOH Screenings 11/12/1977 [facility]-Adult SDOH Screenings 11/12/1977 [facility]-Pap Smear 11/12/1980 [facility]-Cervical Cancer Screening 11/12/1989 [facility]-HPV/Cotest 11/12/1989 CT Colonography 11/12/2004 Colonoscopy 11/12/2004 FIT-DNA 11/12/2004 FIT 11/12/2004 FOBT 11/12/2004 Sigmoidoscopy 11/12/2004 [facility]-Colorectal Cancer Screening 11/12/2004 [facility]-Pneumococcal Vaccine: 50 + Years (1 of 1 - PCV) 11/12/2009 [facility]-Zoster Vaccines (1 of 2) 11/12/2009 [id number] Vaccine (2 - season) 2023 06/23/2020 [facility]-Influenza Vaccine (Seaso n Ended) 2024 02/08/2021, 01/02/2020 [facility]-DTaP,Tdap,and Td Vaccine s (2 - Td or Tdap) 10/09/2032 10/09/2022 [facility]-RSV Vaccine: 60+ Years o r (1 - 1-dose 75+ series) 11/12/2034 HPV Vaccines Aged Out No longer eligi ble based on patient's age to complete this topic [facility]-HIB Vaccines Aged Out No longer e ligible based on patient's age to complete this topic [facility]-Hepatitis A Vaccines Aged Out No longer eligible based on patient's age to complete this topic [facility]-IPV Vaccines Aged Out No longer e ligible based on patient's age to complete this topic [facility]-Rotavirus Vaccines Aged Out No lo nger eligible based on patient's age to complete this topic Insurance MEDICARE [employer] Care Teams Ticket Clerk Relationship Specialty Start Date End Date Abelardo Roche MD [address] [place] [id number] PCP - General 08/28/23 Wilma Rodriguez APRN [address] [place] [id number] Nurse Practitioner Neurosurgery 08/28/23
--- OUTSIDE RECORDS SUMMARY | 2024-10-06 13:17 | XMS_ITS | Patient Health Record ---
Author Organization [facility] Address [address] [place] [id number] Care Team Providers Care Career Development Coordinator Name Role Phone Jody Roche Primary Care Provider [phone] Suzie Lyons Unavailable [phone] Jack Cuevas Unavailable [phone] Allergies Allergen (clinical drug ingredient) Drug/Non Drug Allergy documented on EMR Reaction Allergy Type Onset Date Status hydrochlorothiazide / lisinopril Lisinopril-hydro CHLOROthiazide rash, mouth tingling Drug Allergy Active Results Component Value Reference Range Notes P-Pap Test Thin Prep Reviewed date:07/24/2024 04:25:51 PM Interpretation:Negative Performing Lab: Notes/Report: Pap Test Thin Prep Negative for Intraepithelial Lesion or Malignancy Source: Vaginal/Cervical/Endoce rvical LMP: 12/04/2022 Date Taken: 07/18/2024 Specimen Type: ThinPrep Vial Date Reported: 07/23/2024 Clinical Data: Last Pap: negative (12/04/2022) Cytotech: DEION Buck(ASCP) Date Reported: 07/23/2024 Reviewed By: DEION Brenner(ASCP) Specimen Adequacy: Satisfactory for evaluation Scant cellularity General Categorization: NEGATIVE FOR INTRAEPITHELIAL LESION OR MALIGNANCY Interpretation/Result: Atrophy Comments/Recommendation s: Inflammation The following tests have been ordered as requested and a separate report will be issued: HPV High Risk Screen (TMA) Cervical cytology is a screening test primarily for squamous cancers and precursors and has associated false-negative and false-positive results. New technologies such as liquid-based preparations may decrease but will not eliminate all false-negative results. Regular sampling and follow-up of unexplained clinical signs and symptoms are recommended to minimize false negative results. End of Report Technical services provided by [facility], [facility], d/b/a [address] , [place] [address] Jorge Hightower MD, Director Software. Case reviewed and diagnosis rendered at [facility], [facility], d/b/a [address] , [place] [address] Jorge Hightower MD, Director Software. CONFIDENTIAL HPV High Risk Screen (TMA) Reviewed date:07/24/2024 04:25:51 PM Interpretation:Negative Performing Lab: Notes/Report: HPV High Risk NOT DETECTED The human papillomavirus (HPV) High Risk Screen is an FDA-approved in-vitro amplified nucleic acid test for the qualitative detection of E6/E7 viral mRNA. Results should be correlated with patient presentation, history, cervical cytology and other clinical and laboratory findings. See [email or web address] d f for further information. Test performed by [facility], [facility]/a [address] , [address], [place] [address], Eugenia Gallegos DO, Director Software, CLIA# [id number] [facility] Reviewed date:08/29/2024 04:11:19 PM Interpretation:Negative Performing Lab: Notes/Report: Negative Mammogram Reviewed date:05/28/2024 11:42:37 AM Interpretation:Negative, annual f/u Performing Lab: Notes/Report: Negative, annual f/u result Negative, annual f/u P-Comprehensive Metabolic Pa rosmery (CMP) Reviewed date:12/31/2023 11:22:45 AM Interpretation:gluc 108, Cr 1.05, gfr 59, alt 48, ast 42 Performing Lab: Notes/Report: Test performed by [facility], [address] , [address], [place] [address] Anirudh Randle MD, Director Software CLIA: [id number] Sodium 137 135-145 mmol/L Potassium 4.4 3.5-5.3 mmol/L Chloride 98 97-108 mmol/L CO2 28 22-32 mmol/L Glucose 108 65-99 mg/dL BUN 14 8-23 mg/dL Creatinine 1.05 0.50-1.00 mg/dL Calcium 9.6 8.6-10.4 mg/dL eGFR by Creatinine 59 >59 mL/min/1.73m2 Protein 7.1 6.0-8.3 g/dL Albumin 4.5 3.5-5.3 g/dL Alkaline Phosphatase 105 35-121 IU/L ALT (SGPT) 48 <5-47 IU/L AST (SGOT) 42 <5-40 IU/L Bilirubin, Total 0.7 <0.2-1.2 mg/dL A/G Ratio 1.7 1.1-2.5 Pathology evaluation Reviewed date:07/11/2024 05:27:06 PM Interpretation:Normal Performing Lab: Notes/Report: Normal P-Surgical Pathology Reviewed date:10/16/2023 02:06:37 PM Interpretation: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 2. Skin, right chest wall, shave biopsy: Basal cell carcinoma, nodular and superficial, extending to the peripheral and deep margins. Brisa Buchanan MD electronically signed 10/16/2023 11:45 AM Gross Description: 1. Received in formalin labeled Christine Mireles and right cheek lesion is a pale braun to braun raised shave biopsy measuring 0.6 x 0.3 x 0.1 cm. Centrally on the skin surface is a raised pale braun lesion measuring 0.3 x 0.2 cm and is less than 0.1 cm from the nearest margin. The margin is inked blue. The specimen is bisected and submitted entirely in cassette 1A, 05/17. 2. Received in formalin labeled Christine Mireles and right chest lesion is a braun to pale braun shave biopsy measuring 1.4 x 1.3 x 0.1 cm. Centrally on the skin surface is a pale braun to pink-braun lesion measuring 0.8 x 0.7 cm and abuts the nearest margin. The base is inked blue. The specimen is sectioned and submitted entirely in cassette 2A, 07/15. ([id number],csb) Grossing services provided by [facility], [facility], d/b/a [address] [place], [address] Jorge Hightower MD, Director Software. Microscopic Description: 1. There is cytologic atypia of keratinocytes which involves full thickness epidermis. These are features of squamous carcinoma in-situ. There is no invasive carcinoma present in these sections. 2. In addition to a nodular basal cell carcinoma, there are nests of basal cell carcinoma also present as multifocal nests along the dermal-epidermal junction. Clinical History: Neoplasm of uncertain behavior, unspecified (D48.9); suspicious skin lesion of the face and chest Time of Collection of Tissue: 8:30 Time of Immersion of Tissue in Fixative: 8:45 Specimen List: 1. Suspicious lesion right cheek 2. Suspicious lesion right chest wall Unless specified otherwise above, the quality of the H and E and any other stains performed is satisfactory, and any internal or external positive and negative controls react appropriately. End of Report Technical services provided by [facility], [facility], d/b/a [address] , [place] [address] Jorge Hightower MD, Director Software. Case reviewed and diagnosis rendered at [facility], [facility], d/b/a [address] , [place] [address] Jorge Hightower MD, Director Software. CONFIDENTIAL P-Comprehensive Metabolic Pa rosmery (CMP) Reviewed date:06/25/2024 09:07:20 AM Interpretation:Cr 1.07, gfr 58 Performing Lab: Notes/Report: Test performed by [facility], [address] , [address], [place] [address] Anirudh Randle MD, Director Software CLIA: [id number] Sodium 141 135-145 mmol/L Potassium 3.8 3.5-5.3 mmol/L Chloride 101 97-108 mmol/L CO2 29 22-32 mmol/L Glucose 87 65-99 mg/dL BUN 10 8-23 mg/dL Creatinine 1.07 0.50-1.00 mg/dL Calcium 9.0 8.6-10.4 mg/dL eGFR by Creatinine 58 >59 mL/min/1.73m2 Protein 6.9 6.0-8.3 g/dL Albumin 4.5 3.5-5.3 g/dL Alkaline Phosphatase 99 35-121 IU/L ALT (SGPT) 20 <5-47 IU/L AST (SGOT) 25 <5-40 IU/L Bilirubin, Total 0.2 <0.2-1.2 mg/dL A/G Ratio 1.9 1.1-2.5 Medications Medication SIG (Take, Route, Frequency, Duration) Notes Start Date End Date Status Cymbalta 30 MG 1 cap(s) orally once a day for 90 days Active Clotrimazole-Betamethasone 1-0.05 % 1 application Externally Twice a day 07/26/2023 Active Clotrimazole 1 % 1 joe applied topically 2 times a day for 7 day(s) Active Tylenol 8 Hour 650 MG 1 tab Orally every 8 hrs Active Cyclobenzaprine HCl 10 MG 1 tablet at be dtime as needed Orally three times a day as needed 06/11/2023 Not-Taking Ibuprofen 800 MG 1 tablet with food o r milk as needed Orally three times a day as needed 06/11/2023 Active Triamterene-HCTZ 37.5-25 MG Take 1 tablet by mouth once daily for 90 Active CPAP Supplies - as directed as directed 01/14/2024 Active OxyCONTIN 20 MG 1 tab(s) orally 2 times a day for 30 days 09/29/2024 Active Esomeprazole Magnesium 40 MG 1 capsule Orally Once a day 02/08/2023 Active amLODIPine Besylate 5 MG Take 1 tablet b y mouth once daily for 90 days for 90 Active Losartan Potassium 50 MG 1 tab(s) orally Two times a day for 30 days Active Gabapentin 600 MG 1 tablet Orally Thre e times a day for 30 day(s) 06/23/2024 Active Immunizations Vaccine Route Administration Date Status Comme nts COVID 19 Kendrick Unknown 06/23/2020 Administered Fluzone Quad (6months&older) IM Intramuscular 01/02/2020 Administered Fluzone Quad (6months&older) IM Intramuscular 02/08/2021 Administered H1N1 flu vaccine IM Intramuscular 03/06/2009 Administered PNEUMOVAX 23 VACCINE IM Intramuscular 03/23/2014 Administe red Tetanus Tdap-Adacel (over 7yrs) Unknown 10/09/2022 Administered xFlu shot-36 months and older IM Intramuscular 03/03/2005 Administered xFlu shot-36 months and older IM Intramuscular 03/13/2006 Administered xFlu shot-36 months and older IM Intramuscular 05/04/2008 Administered xFlu shot-36 months and older IM Intramuscular 02/23/2009 Administered xFlu shot-36 months and older IM Intramuscular 03/05/2010 Administered xFluzone (6mos and older)-trivalent IM Intramuscular 02/14/2012 Administered xFluzone Intradermal (18-64yrs)-trivalent ID Intradermal 01/22/2013 Administered xFluzone Intradermal (18-64yrs)-trivalent ID Intradermal 03/23/2014 Administered Problems Problem Type SNOMED Code ICD Code Onset Dates Problem Status W/U Status Risk Notes Problem 496957044 Low back pain (M54.5) Active confirmed Problem 27724396 Low back pain du e to displacement of intervertebral disc (M51.26) Active confirmed Problem 72724898 Essential hypertension (I10) Active confirmed Problem 9736372 Psoriasis (L40.9) Active confirmed Problem Recurrent falls (069554627) Falls frequently (R29.6) Active confirmed Problem 07678044 Other chronic pa in (G89.29) Active confirmed Problem 693949933 Seborrheic kerat osis (L82.1) Active confirmed Problem 46010378 Other chronic pa in (G89.29) Active confirmed Problem 445934940 Renal insufficie ncy (N28.9) Active confirmed Problem 98986716 Visual disturban ce (H53.9) Active confirmed Problem 532012939 Seborrheic dermatitis of scalp (L21.9) Active confirmed Problem Colon cancer screening (284026889) Colon cancer screening (Z12.11) Active confirmed Problem 546046429 BMI 38.0-38.9,ad ult (Z68.38) Active confirmed Problem 483370979 Primary osteoarthritis of right knee (M17.11) Active confirmed Problem 696967081 Primary osteoarthritis of left knee (M17.12) Active confirmed Problem 711599535 Lentigo (L81.4) Active confirmed Problem 951248385 Frequent falls (R29.6) Active confirmed Problem 08314059 Fibrocystic elva st disease (FCBD), unspecified laterality (N60.19) Active confirmed Problem 331844005 Lumbar radiculopathy, right (M54.16) Active confirmed Problem 628693881 Type 2 diabetes mellitus without complication, unspecified whether intermediate frame tender insulin use (E11.9) Active confirmed Problem 309606178 Neoplasm of skin of chest (D49.2) Active confirmed Problem 127819315 Gastroesophageal reflux disease with esophagitis without hemorrhage (K21.00) Active confirmed Problem 819728214 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) Active confirmed Problem 822504904 Basal cell carci noma (BCC) of chest wall (C44.519) Active confirmed Vital Signs Heart Rate 101 /min 10/06/2024 Blood pressure diastolic 80 mm Hg 10/06/2024 Height 62.75 in 10/06/2024 Blood pressure systolic 120 mm Hg 10/06/2024 Weight 212.4 lbs 10/06/2024 BMI 37.92 kg/m2 10/06/2024 Encounters Encounter Location Date Provider Diagnosis [facility] [address] [facility] [address] [facility] [address] [place], [place] [id number] 10/12/2023 Jody Roche Squamous cell carcin karla of cheek C44.329 and Basal cell carcinoma (BCC) of chest wall C44.519 [facility] [address] [facility] [address] [facility] [address] [place], [place] [id number] 11/29/2023 Jack [place] Cellulitis of right middle finger L03.011 [facility] [address] [facility] [address] [facility] [address] [place], [place] [id number] 12/14/2023 Jody Roche Essential hypertensi on I10 ; Low back pain due to displacement of intervertebral disc M51.26 ; Squamous cell carcinoma of cheek C44.329 ; Basal cell carcinoma (BCC) of chest wall C44.519 ; Paronychia of finger of right hand L03.011 and Excessive sweating R61 [facility] [address] [facility] [address] [place], [place] [id number] 01/14/2024 Jody Roche Low back pain due to displacement of intervertebral disc M51.26 ; Essential hypertension I10 and Renal insufficiency N28.9 [facility] [address] [facility] [address] [place], [place] [id number] 03/17/2024 Jody Roche Low back pain due to displacement of intervertebral disc M51.26 ; Other chronic pain G89.29 ; Essential hypertension I10 and Type 2 diabetes mellitus without complication, unspecified whether intermediate frame tender insulin use E11.9 [facility] [address] [facility] [address] [place], [place] [id number] 04/14/2024 Jody Roche Essential hypertensi on I10 ; Low back pain due to displacement of intervertebral disc M51.26 ; Other chronic pain G89.29 ; Fibrocystic breast disease (FCBD), unspecified laterality N60.19 and Type 2 diabetes mellitus without complication, unspecified whether intermediate frame tender insulin use E11.9 [facility] [address] [facility] [address] [place], [place] [id number] 06/23/2024 Jody Roche Low back pain due to displacement of intervertebral disc M51.26 ; Renal insufficiency N28.9 and Screen for colon cancer Z12.11 [facility] [address] [facility] [address] [place], [place] [id number] 07/18/2024 Jody Roche Well woman exam with routine gynecological exam Z01.419 ; Lumbar radiculopathy, right M54.16 and Type 2 diabetes mellitus without complication, unspecified whether intermediate frame tender insulin use E11.9 [facility] [address] [facility] [address] [place], [place] [id number] 09/15/2024 Jody Roche Low back pain due to displacement of intervertebral disc M51.26 ; Low back pain M54.5 ; Other chronic pain G89.29 and BMI 38.0-38.9,adult Z68.38 [facility] [address] [facility] [address] [place] [id number] 10/06/2024 Jody Roche Right hip pain M25.5 51 [facility] [address] [facility] [address] [place] [id number] 08/15/2024 Jody Roche Low back pain due to displacement of intervertebral disc M51.26 ; Low back pain M54.5 ; Other chronic pain G89.29 ; Essential hypertension I10 ; Type 2 diabetes mellitus without complication, unspecified whether nursing home insulin use E11.9 ; Squamous cell carcinoma of cheek C44.329 ; BMI 38.0-38.9,adult Z68.38 and Lumbar back pain M54.50 [facility] [address] [facility] [address] [place], [place] [id number] 10/16/2023 Jody Roche [facility] [address] [facility] [address] [place] [id number] 10/30/2023 Jody Roche Low back pain due to displacement of intervertebral disc M51.26 and Sprain of low back, initial encounter S33.5XXA [facility] [address] [facility] [address] [place], [place] [id number] 11/26/2023 Jody Roche [facility] [address] [facility] [address] [place] [id number] 11/26/2023 Jody Roche [facility] [address] [facility] [address] [place] [id number] 11/30/2023 Jack [place] Low back pain due to displacement of intervertebral disc M51.26 and Sprain of low back, initial encounter S33.5XXA [facility] [address] [place] [id number] 12/04/2023 Jody Roche [facility] [address] [facility] [address] [place] [id number] 12/31/2023 Jody Roche [facility] [address] [facility] [address] [place] [id number] 01/01/2024 Jody Roche Low back pain due to displacement of intervertebral disc M51.26 and Sprain of low back, initial encounter S33.5XXA [facility] [address] [facility] [address] [place] [id number] 01/14/2024 J Gian Melchor [facility] [address] [place] [id number] 01/15/2024 J Gian Melchor Essential hypertensi on I10 [facility] [address] [place] [id number] 01/30/2024 J Gian Melchor Low back pain due to displacement of intervertebral disc M51.26 [facility] [address] [place] [id number] 02/25/2024 J Gian Melchor [facility] [address] [place] [id number] 03/03/2024 J Gian Melchor Low back pain due to displacement of intervertebral disc M51.26 [facility] [address] [place] [id number] 03/12/2024 J Gian Melchor [facility] [address] [place] [id number] 03/12/2024 J Gian Melchor [facility] [address] [place], [place] [id number] 04/01/2024 R Korey Lyons Low back pain due to displacement of intervertebral disc M51.26 [facility] [address] [place] [id number] 05/02/2024 J Gian Melchor Low back pain due to displacement of intervertebral disc M51.26 [facility] [address] [place] [id number] 06/02/2024 J Gian Melchor Low back pain due to displacement of intervertebral disc M51.26 [facility] [address] [place] [id number] 06/25/2024 J Gian Melchor [facility] [address] [place] [id number] 07/01/2024 J Gian Melchor Low back pain due to displacement of intervertebral disc M51.26 [facility] [address] [place] [id number] 08/28/2024 Jack Cuevas Lumbar radiculopathy , right M54.16 [facility] [address] [place] [id number] 09/29/2024 Jody Roche Lumbar radiculopathy , right M54.16 Assessments Encounter Date Diagnosis (ICD Code) Assessment Notes Treatment Notes Treatment Clinical Notes Section Notes 10/12/2023 Squamous cell carcinoma of cheek (ICD-10 - C44.329) 10/12/2023 Basal cell carcinoma (BCC) of chest wall (ICD-10 - C44.519) 10/30/2023 Low back pain due to displacement of intervertebral disc (ICD-10 - M51.26) 11/29/2023 Cellulitis of right middle finger (ICD-10 - L03.011) 11/30/2023 Low back pain due to displacement of intervertebral disc (ICD-10 - M51.26) 12/14/2023 Low back pain due to displacement of intervertebral disc (ICD-10 - M51.26) 12/14/2023 Essential hypertension (ICD-10 - I10) 01/01/2024 Low back pain due to displacement of intervertebral disc (ICD-10 - M51.26) 01/14/2024 Low back pain due to displacement of intervertebral disc (ICD-10 - M51.26) 01/14/2024 Essential hypertension (ICD-10 - I10) 01/15/2024 Essential hypertension (ICD-10 - I10) 01/30/2024 Low back pain due to displacement of intervertebral disc (ICD-10 - M51.26) 03/03/2024 Low back pain due to displacement of intervertebral disc (ICD-10 - M51.26) 03/17/2024 Low back pain due to displacement of intervertebral disc (ICD-10 - M51.26) 04/01/2024 Low back pain due to displacement of intervertebral disc (ICD-10 - M51.26) 04/14/2024 Low back pain due to displacement of intervertebral disc (ICD-10 - M51.26) 04/14/2024 Essential hypertension (ICD-10 - I10) 05/02/2024 Low back pain due to displacement of intervertebral disc (ICD-10 - M51.26) 06/02/2024 Low back pain due to displacement of intervertebral disc (ICD-10 - M51.26) 06/23/2024 Low back pain due to displacement of intervertebral disc (ICD-10 - M51.26) 06/23/2024 Renal insufficiency (ICD-10 - N28.9) 07/01/2024 Low back pain due to displacement of intervertebral disc (ICD-10 - M51.26) 07/18/2024 Well woman exam with routine gynecological exam (ICD-10 - Z01.419) 07/18/2024 Lumbar radiculopathy, right (ICD-10 - M54.16) 03/17/2024 Other chronic pain (ICD-10 - G89.29) 08/15/2024 Low back pain (ICD-10 - M54.5) 08/15/2024 Low back pain due to displacement of intervertebral disc (ICD-10 - M51.26) 08/28/2024 Lumbar radiculopathy, right (ICD-10 - M54.16) 09/15/2024 Low back pain due to displacement of intervertebral disc (ICD-10 - M51.26) 09/29/2024 Lumbar radiculopathy, right (ICD-10 - M54.16) 10/06/2024 Right hip pain (ICD-10 - M25.551) 09/15/2024 Low back pain (ICD-10 - M54.5) 08/15/2024 Other chronic pain (ICD-10 - G89.29) 07/18/2024 Type 2 diabetes mellitus without complication, unspecified whether intermediate frame tender insulin use (ICD-10 - E11.9) 06/23/2024 Screen for colon cancer (ICD-10 - Z12.11) 04/14/2024 Other chronic pain (ICD-10 - G89.29) 03/17/2024 Essential hypertension (ICD-10 - I10) 01/14/2024 Renal insufficiency (ICD-10 - N28.9) 01/01/2024 Sprain of low back, initial encounter (ICD-10 - S33.5XXA) 12/14/2023 Squamous cell carcinoma of cheek (ICD-10 - C44.329) 11/30/2023 Sprain of low back, initial encounter (ICD-10 - S33.5XXA) 10/30/2023 Sprain of low back, initial encounter (ICD-10 - S33.5XXA) 12/14/2023 Basal cell carcinoma (BCC) of chest wall (ICD-10 - C44.519) 04/14/2024 Fibrocystic breast disease (FCBD), unspecified laterality (ICD-10 - N60.19) 08/15/2024 Essential hypertension (ICD-10 - I10) 03/17/2024 Type 2 diabetes mellitus without complication, unspecified whether nursing home insulin use (ICD-10 - E11.9) 09/15/2024 Other chronic pain (ICD-10 - G89.29) 09/15/2024 BMI 38.0-38.9,adult (ICD-10 - Z68.38) 08/15/2024 Type 2 diabetes mellitus without complication, unspecified whether intermediate frame tender insulin use (ICD-10 - E11.9) 04/14/2024 Type 2 diabetes mellitus without complication, unspecified whether intermediate frame tender insulin use (ICD-10 - E11.9) 12/14/2023 Paronychia of finger of right hand (ICD-10 - L03.011) 12/14/2023 Excessive sweating (ICD-10 - R61) [employer] Soy product recommended 08/15/2024 Squamous cell carcinoma of cheek (ICD-10 - C44.329) 08/15/2024 BMI 38.0-38.9,adult (ICD-10 - Z68.38) 08/15/2024 Lumbar back pain (ICD-10 - M54.50) Plan Of Treatment Pending Test Test Name Order Date X ray : Hip, right 10/06/2024 colonoscopy 03/17/2024 EMG/NCV, bilateral 10/08/2020 Next Appt Details Provider Name:Jody Suarez er, 10/20/2024 10:45:00 AM, [address], [place], [phone], Provider Name:Jody Suarez er, 12/22/2024 10:30:00 AM, [address], [address], [place], [id number], Insurance Providers Payer Name Payer Address Payer Phone Subscriber Number Group Number Insured Name Patient Relationship to Insured Coverage Start Date Coverage End Date MEDICARE PART B [address] [address] [place] [id number] Christine Mireles Self - patient is the insured [employer] [address] [place] [phone] [id number] Christine Mireles Self - patient is the insured Medications Administered Medication Instructions Date of Administration Dosage Notes Dexamethasone 08/07/2013 Dexamethasone 12/20/2021 1 mL Medical (General) History Medical History History ICD Code Hypertension chronic back pain Lumbar Disc Disease 10/04/2016 neg Cardiolyte GXT 10/04/2016 Echocardiogram, normal EF 10/04/2016 US liver, fatty infiltration Surgical History Surgery Date(Month/Year) Breast Reduction 1989 Tubal Ligation 1990 Cholecystectomy 1997 rectal fissure repair 05/05/2005 Right L5-S1 facetectomy, leahy inectomy, discectomy with fixation. Dr. Petit 11/29/2009 left knee arthroplasty, Art Reeves 11/12/2017 right knee replacement, Art Dozier 02/2018
== END 2024-10-06 23:59 | disposition home or self-care (01) ==
LOC: RAD 13:02
PROVIDERS: PCP Family Medicine; Visit Provider Family Medicine
DX: M16.11 Unilateral primary osteoarthritis, right hip (principal); M25.851 Other specified joint disorders, right hip
CPT/HCPCS: 73502

== ENCOUNTER 2024-12-10 10:00 | Outpatient (RCR) | payer MEDICARE, SELFPAY ==
--- NOTE | 2024-11-17 12:18 | HMH.PTOPEV ---
PT Outpatient Evaluation Rehab PT Outpatient Evaluation Start: 11/17/24 09:41 Freq: Status: Active Protocol: Document 11/17/24 09:41 CLAUDINE (Rec: 11/17/24 12:17 CLAUDINE [id number]) E-signed By Miriam Garza, PT Outpatient Therapy Subjective History Subjective History Pt is a 64 y/o female who reports chronic LBP with new onset of right posterolateral leg pain 6-7 months ago without known trauma or injury. Pt reports constant pain of the right leg from the posterolateral hip to the anterior thigh to the knee. Pt reports intermittent numbness of the right leg and sharp groin pain with weight bearing as well. Pt reports pain/paresthesia is aggravated by prolonged standing, walking, walking on uneven ground, stair climbing, and lifting. Pt reports ice and leaning forward seem to help. Pt reports her right leg sometimes sarbjit due to weakness, states she fell 1 month ago due to turning on the RLE quickly and it giving way. Pt denies further pain or injury from the fall. 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 Pt reports most recent lumbar spine MRI in July of last year with impression of Mild degenerative change from L1-2 through the L4-5 level.L5-S1 moderate bulge with significant endplate hypertrophy greater on the right, moderate to severe right and moderate left neural foraminal narrowing. No enhancement is noted post contrast administration. Pt reports history of lumbar fusion in 2009 due to central low back pain with improvement in symptoms, pt denies history of radicular symptoms. Pt reports she completed 2 months of PT at [address] recently without improvement in symptoms. Medical History: Hypertension Negative slump test New diagnosis of No cancer in past 12 months? Chief Complaint Pain,Paresthesia,Weakness Symptom Type Burning,Numbness Symptoms Relieved By Ice,Prescription Meds Symptoms Aggravated Standing,Physical Activity,Walking By Current Functional Housework,Standing,Recreation Activity,Walking,Stairs Limitations Symptom Description Intermittent Level of pain today 0 (0-10) Pain scale - at its 0 best (0-10) Pain scale - at its 10 worst (0-10) Lumbopelvic Eval Assistive device Assistive Devices None / NA Palapation tenderness bilateral paraspinal Yes: R lumbar PS tenderness buttock tenderness Yes: R glute med/min, greater trochanter Lumbar/Sacral Tenderness Palpation Findings Lumbar/Sacral 3/4 TTP Palpation Overall Comment Range of Motion Lumbar Spine Active 100 Flexion Range of Motion (degrees) Lumbar Spine Active 10 Extension Range of Motion (degrees) Left Lumbar Spine 10 Lateral Flexion Active Range of Motion (degrees) Right Lumbar Spine 10 Lateral Flexion Active Range of Motion (degrees) Manual Muscle Test Right Knee Extension 5 Normal Strength Grade Knee Flexion 5 Normal Strength Grade Hip Flexion Strength 4 Good Grade Hip Abduction 4- Good- Strength Grade Hip Adduction 4 Good Strength Grade Hip Extension 4 Good Strength Grade Ankle Dorsiflexion 5 Normal Strength Grade Altered Sensation Bilateral Comment equal and intact to light touch sensation bilaterally Special Tests Hip Scouring ( Positive Right Quadrant) Test Unilateral Straight Negative Left,Negative Right Leg Raise (Lasegue) Test Hip/Knee Eval ROM right Hip Flexion w/Knee 112 Extended Active Range of Motion ( degrees) Hip External 40 Rotation Active Range of Motion ( degrees) Hip Internal 30 p! Rotation Active Range of Motion ( degrees) Lower Extremity Functional Index Activities Today, do you or would you have any difficulty at all with: a.Any of your usual Moderate difficulty work, housework or school activities b. Your usual A little bit of difficulty hobbies, recreational or sporting activities c. Getting into or No difficulty out of the bath d. Walking between No difficulty rooms e. Putting on your No difficulty shoes or socks f. Squatting Moderate difficulty g. Lifting an object A little bit of difficulty , like a bag of groceries from the floor h. Performing light Moderate difficulty activities around your home i. Performing heavy Moderate difficulty activities around your home j. Getting into or A little bit of difficulty out of a car k. Walking 2 blocks A little bit of difficulty l. Walking a mile Extreme difficulty or unable to perform activity m. Going up or down A little bit of difficulty 10 stairs (about 1 flight of stairs) n. Standing for 1 A little bit of difficulty hour o. Sitting for 1 Moderate difficulty hour p. Running on even Extreme difficulty or unable to perform activity ground q. Running on uneven Extreme difficulty or unable to perform activity ground r. Making sharp Extreme difficulty or unable to perform activity turns while running fast s. Hopping Extreme difficulty or unable to perform activity t. Rolling over in A little bit of difficulty bed LEFI Score Lower Extremity 43 Functional Index Score Outpatient Therapy Assessment Impairments Problems/ Palpation Tenderness,Impaired Range of Motion,Impaired Impairmments Strength,Impaired Walking,Impaired Standing,Impaired Sitting,Impaired Lifting,Impaired Household Care, Impaired Squatting,Impaired Bending,Subjective C/O Pain ,Impaired Self Care/Self Management Prognosis Rehab Potential Good Clinical Impression Consistent with Yes Diagnosis Short Term Goals Number of Weeks 3 Improve LEFI Score Yes: Improve score to 53/80 to improve overall QOL Decrease Subjective Yes: Improve pain at worst to 8/10 to improve overall C/O Pain QOL Improve Self Care/ Yes Self Management Patient to be Ind w/ Yes HEP Chcf Goals Number of Weeks 6 Decreased Palpation Yes: 0-1/4 TTP of R lumbar PS and gluteal mm Tenderness Increase Range of Yes: Improve R hip AROM IR/ER to 40-45, lumbar ext & LF Motion to 15 Increase Strength Yes: Improve RLE MMT to 4+/5 grossly to assist with function Improve Ability For Yes: report ability to perform laundry/dishes without Household Care radicular symptoms Improve LEFI Score Yes: Improve score to 63/80 to improve overall QOL Decrease Subjective Yes: Improve pain at worst to 6/10 to improve overall C/O Pain QOL Outpatient Therapy Plan of Care Treatment Plan May Include Therapeutic Exercise Yes Including Home Exercise Program Manual Therapy Yes Techniques Neuromuscular Re- Yes education Therapeutic Yes Activities to Return to Previous Functional/Work Level ADL/Self Care Yes Education Mechanical Traction Yes Dry Needling Yes Thermal Modalities Yes Electrical Yes Stimulation Ultrasound/ Yes Phonophoresis Iontophoresis Yes Orthotics/Bracing/ Yes Splinting Vasopneumatic Yes Compression Pump Massage Yes Group Therapy for Yes Medicare Eval/Re-Eval Yes Aquatic Therapy Yes Frequency Times per week 2 Duration Number of Weeks 4-6 Addendums This patient is a No candidate for social or vocational rehab ? Patient/Guardian Yes verbally acknowledges understanding of treatment program and consents to further treatment? Patient/Guardian Yes verbally acknowledges understanding of diagnosis, prognosis and goals for treatment? Eval Complexity PT Charges 98042 - Low Complexity Shoulder/Elbow Eval Shoulder Objective Measurements Elbow Objective Measurements PHYSICIAN CERTIFICATION: I certify the specified therapy services for Patti Mireles are required, authorized, and reviewed every 30 days.
== END 2024-12-10 23:59 | disposition home or self-care (01) ==
LOC: PT 10:00
PROVIDERS: PCP Family Medicine; Visit Provider Family Medicine
DX: M25.551 Pain in right hip (principal); M54.50 Low back pain, unspecified; G89.29 Other chronic pain
CPT/HCPCS: 97035; 97110; 97140; 97161

== ENCOUNTER 2024-12-29 12:59 | Outpatient (CLI) | payer MEDICARE, SELFPAY ==
--- OUTSIDE RECORDS SUMMARY | 2024-11-24 07:30 | XMS_ITS ---
Author Organization [facility] Address [address] [place] [id number] Care Team Providers Care Property Management Bookkeeper Name Role Phone Jody Roche Primary Care Provider Allergies Allergen (clinical drug ingredient) Drug/Non Drug Allergy documented on EMR Reaction Allergy Type Onset Date Status hydrochlorothiazide / lisinopril Lisinopril-hydro CHLOROthiazide rash, mouth tingling Drug Allergy Active Results Component Value Reference Range Notes Glycohemoglobin A1c (in hous e) Reviewed date:11/26/2024 10:57:27 AM Interpretation:5.8% Performing Lab: Notes/Report: 5.8% glycohemoglobin 5.8% 5 - 6.5 % P-Basic Metabolic Panel (BMP ) Reviewed date:11/29/2024 10:18:46 AM Interpretation:Normal Performing Lab: Notes/Report: Test performed by [facility], [facility] [address] [place] [address] , [address], [place] [address] Anirudh Randle MD, Business Case Analyst CLIA: [id number] Sodium 139 135-145 mmol/L Potassium 3.5 3.5-5.3 mmol/L Chloride 101 97-108 mmol/L CO2 27 20-32 mmol/L Glucose 97 65-99 mg/dL BUN 14 8-23 mg/dL Creatinine 0.99 0.50-1.00 mg/dL Calcium 9.1 8.6-10.4 mg/dL eGFR by Creatinine 63 >59 mL/min/1.73m2 P-Magnesium Reviewed date:11/29/2024 10:18:46 AM Interpretation:Normal Performing Lab: Notes/Report: Test performed by [email or web address] , [address], [place] [address] Anirudh Randle MD, Business Case Analyst CLIA: [id number] Magnesium 2.0 1.6-2.4 mg/dL REASON FOR VISIT W/C 1 month ckup Medications Medication SIG (Take, Route, Frequency, Duration) Notes Start Date End Date Status OxyCONTIN 20 MG 1 tab(s) orally 2 ti mes a day; Duration: 30 days 10/27/2024 Active Esomeprazole Magnesium 40 MG 1 capsule Orally Once a day; Duration: 30 days Active CPAP Supplies - as directed as directed 01/14/2024 Active Gabapentin 600 MG 1 tablet Orally Thre e times a day; Duration: 30 day(s) 11/18/2024 Active Triamterene-HCTZ 37.5-25 MG Take 1 table t by mouth once daily; Duration: 90 Active Tylenol 8 Hour 650 MG 1 tab Orally every 8 hrs Active Losartan Potassium 50 MG 1 tab(s) orally Two times a day; Duration: 30 days Active amLODIPine Besylate 5 MG Take 1 tablet b y mouth once daily for 90 days; Duration: 90 Active Ibuprofen 800 MG 1 tablet with food o r milk as needed Orally three times a day as needed 06/11/2023 Active Cymbalta 30 MG 1 cap(s) orally once a day; Duration: 90 days Active Vital Signs Blood pressure systolic 120 mm Hg 11/25/19 25 Blood pressure diastolic 82 mm Hg 025 Heart Rate 102 /min 11/24/2024 Height 62.75 in 11/24/2024 Weight 218.6 lbs 11/24/2024 BMI 39.03 kg/m2 11/24/2024 Encounters Encounter Location Date Provider Diagnosis [facility] [address] [place], [place] [id number] 11/24/2024 Jody Roche Lumbar radiculopathy , right M54.16 ; Gastroesophageal reflux disease with esophagitis without hemorrhage K21.00 and Hyperglycemia R73.9 Assessments Encounter Date Diagnosis (ICD Code) Assessment Notes Treatment Notes Treatment Clinical Notes Section Notes 11/24/2024 Lumbar radiculopathy, right (ICD-10 - M54.16) 11/24/2024 Gastroesophageal reflux disease with esophagitis without hemorrhage (ICD-10 - K21.00) 11/24/2024 Hyperglycemia (ICD-10 - R73.9) Plan Of Treatment Next Appt Details Follow Up: 3 Months, Reason: Provider Name:Jody Suarez er, 02/27/2025 10:45:00 AM, [address], [address], [place], [place], [id number], Progress Notes * Luly MIRELESOB:1960 (64 yo F)Acc No.[id number]:11/24/2024 Progress Notes Patient: Patti SPRAGUE Provider: Jody Roche M.D. :1960 A ge:64 Y S ex:Female Date:11/24/2024 Address:[address], [place], [id number] Subjective: * Chief Complaints: * 1 . W/C 1 month ckup. * HPI: L e64 year old female presents with c/o Leg pain P t is here today for a 1 month check up. Pt sts she has been getting very bad charley horses in her hands and legs, and sts she gets them all throughout the day, but sts they worse at night when she is laying down in bed. Pt sts this has been going on for a while now. Pt sts she does take some OTC medication for leg cramps, but sts it does not help. * ROS: D ERMATOLOGY: no R dillon. n o H henry. G ASTROENTEROLOGY: no N ausea. n o V omiting. U ROLOGY: no D ifficulty urinating. n [...] Petit 11/29/2009, left knee arthroplasty, Art Reeves [facility] 11/12/2017, right knee replacement, Art Dozier [facility] 02/2018. * Family History: F ather: alive 85 yrs, coronary artery disease, 4 vessel CABG. M other: alive 85 yrs. P aternal Grand Father: , diabetes. 2 brother(s) , 1 sister(s) . 1 daughter(s) . . * Social History: C URRENT TOBACCO USE: No S moking Status: Patient does NOT smoke. [...] times a day as needed , Taking Cymbalta 30 MG Capsule Delayed Release Particles 1 cap(s) orally once a day , Taking Losartan Potassium 50 MG Tablet 1 tab(s) orally Two times a day , Taking amLODIPine Besylate 5 MG Tablet Take 1 tablet by mouth once daily for 90 days , Taking Triamterene- HCTZ 37.5-25 MG Tablet Take 1 tablet by mouth once daily , Taking OxyCONTIN 20 MG Tablet ER 12 Hour Abuse-Deterrent 1 tab(s) orally 2 times a day , Taking Esomeprazole Magnesium 40 MG Capsule Delayed Release 1 capsule Orally Once a day , Taking Gabapentin 600 MG Tablet 1 tablet Orally Three times a day , Medication List reviewed and reconciled with the patient * Allergies: L isinopril-hydroCHLOROthiazide: rash, mouth tingling. Objective: * Vitals: W t: 218.6, Temp: 97.7, BP: 120/82, HR: 102, Nurse: shyanne, Ht: 62.75, BMI:39.03. * Examination: G eneral Examination: General Appearance: [...] E xtremities: n o leg edema. . Assessment: * Assessment: 1. L umbar radiculopathy, right - M54.16 (Primary) 2 . G astroesophageal reflux disease with esophagitis without hemorrhage - K21.00 3 . H yperglycemia - R73.9 Plan: * Treatment: Value Reference Range B UN 14 8-23 - mg/dL * C alcium 9.1 8.6-10.4 - mg/dL * C hloride 101 97-108 - mmol/L * C O2 27 20-32 - mmol/L * C reatinine 0.99 0.50-1.00 - mg/dL * G lucose 97 65-99 - mg/dL * P otassium 3.5 3.5-5.3 - mmol/L * S odium 139 135-145 - mmol/L * e GFR by Creatinine 63 >59 - mL/min/1.73m2 * Chery Swift 11/29/2024 10 :18:11 AM EDT > Patient informed of normal results. ?LAB: P-Magnesium (Collection Date & Time - 11/24/2024 11:13 AM)?Normal* Value Reference Range M agnesium 2.0 1.6-2.4 - mg/dL * [place] Chery L 11/29/2024 10 :18:11 AM EDT > Patient informed of normal results. 2.?Hyperglycemia?LAB: P-Basic Metabolic Panel (BMP) (Collection Date & Time - 11/24/2024 11:13 AM)?Normal* Value Reference Range B UN 14 8-23 - mg/dL * C alcium 9.1 8.6-10.4 - mg/dL * C hloride 101 97-108 - mmol/L * C O2 27 20-32 - mmol/L * C reatinine 0.99 0.50-1.00 - mg/dL * G lucose 97 65-99 - mg/dL * P otassium 3.5 3.5-5.3 - mmol/L * S odium 139 135-145 - mmol/L * e GFR by Creatinine 63 >59 - mL/min/1.73m2 * JenifferChery Geronimo 11/29/2024 10 :18:11 AM EDT > Patient informed of normal results. ?LAB: Glycohemoglobin A1c (in house) (Collection Date & Time - 11/24/2024)? 5.8%* Value Reference Range g lycohemoglobin 5.8% 5 - 6.5 % * Angelina Kimball 11/24/2024 12:2 9:38 PM EDT > Provider reviewed results while patient in office. * Follow Up: 3 Months * Images: Billing Information: * Visit Code: 00419 Office Visit, Est Pt., Level 3. * Procedure Codes: * Electronic signature of Jody Roche MD on 12/29/2024 at 01:03 PM EDT Sign off status: Pending * Provider: Jody Roche M.D. Date: 0 11/24/2024 Generated for Mina tolbert/Jaspal/Marianaitting on: 0 12/29/2024 01:03 PM EDT History and Physical Notes * HPI (History of Present Illness) Category Sub-Category Detail Notes Category Not es HPI Patient is here today for Leg Leg pain Pt is here today for a 1 month check up. Pt sts she has been getting very bad charley horses in her hands and legs, and sts she gets them all throughout the day, but sts they worse at night when she is laying down in bed. Pt sts this has been going on for a while now. Pt sts she does take some OTC medication for leg cramps, but sts it does not help Examination Category Sub-Category Detail Notes Category Not [...]
--- OUTSIDE RECORDS SUMMARY | 2024-11-24 07:30 | XMS_ITS ---
[facility] Address [address] [facility] [address] [place] [id number] Care Team Providers Care Bottle House Pumper Name Role Phone Jody Roche Primary Care Provider REASON FOR VISIT GERD and hyperglycemia labs Medications Medication SIG (Take, Route, Frequency, Duration) Notes Start Date End Date Status Cefuroxime Axetil 500 MG 1 tablet Orally every 12 hrs; Duration: 7 days 11/17/2024 Active Pyridium 200 MG 1 tablet after meals Orally Three times a day As needed 11/05/2024 Active Clotrimazole-Betamethasone 1-0.05 % 1 application Externally Twice a day 07/26/2023 Active methylPREDNISolone 4 MG as directed Oral ly; Duration: 6 days 10/27/2024 Active Clotrimazole 1 % 1 joe applied topically 2 times a day; Duration: 7 day(s) Active Gabapentin 600 MG 1 tablet Orally Thre e times a day; Duration: 30 day(s) 11/18/2024 Active Triamterene-HCTZ 37.5-25 MG Take 1 table t by mouth once daily; Duration: 90 Active amLODIPine Besylate 5 MG Take 1 tablet b y mouth once daily for 90 days; Duration: 90 Active Esomeprazole Magnesium 40 MG 1 capsule O rally Once a day; Duration: 30 days Active OxyCONTIN 20 MG 1 tab(s) orally 2 times a day; Duration: 30 days 10/27/2024 Active Ibuprofen 800 MG 1 tablet with food o r milk as needed Orally three times a day as needed 06/11/2023 Active Tylenol 8 Hour 650 MG 1 tab Orally every 8 hrs Active Losartan Potassium 50 MG 1 tab(s) orally Two times a day; Duration: 30 days Active Cymbalta 30 MG 1 cap(s) orally once a day; Duration: 90 days Active CPAP Supplies - as directed as directed 01/14/2024 Active Encounters Encounter Location Date Provider Diagnosis [facility] [address] [facility] [address] [facility] [address] [place] [id number] 11/24/2024 Jody Roche Gastroesophageal ref lux disease with esophagitis without hemorrhage K21.00 and Hyperglycemia R73.9 Assessments Encounter Date Diagnosis (ICD Code) Assessment Notes Treatment Notes Treatment Clinical Notes Section Notes 11/24/2024 Gastroesophageal reflux disease with esophagitis without hemorrhage (ICD-10 - K21.00) 11/24/2024 Hyperglycemia (ICD-10 - R73.9) See labs documented in duplicate Office Visit Plan Of Treatment Treatment Notes Assessment Notes Hyperglycemia See labs documented in duplicate Office Visit Next Appt Details Provider Name:Jody Suarez er, 02/27/2025 10:45:00 AM, [address] [facility] [address] [facility], [address], [place], [id number], Progress Notes * Luly MIRELESOB:1960 (64 yo F)Acc No.[id number]:11/24/2024 Progress Notes Patient: Patti SPRAGUE Provider: Jody Roche M.D. :1960 A ge:64 Y S ex:Female Date:11/24/2024 Address:[address] [place] [address] [place], [id number] Subjective: * Chief Complaints: * 1 . GERD and hyperglycemia labs. * Medical History: * Medications: T aking Clotrimazole-Betamethasone 1-0.05 % Cream 1 application Externally Twice a day , Taking Clotrimazole 1 % Cream 1 joe applied topically 2 times a day , Taking methylPREDNISolone 4 MG Tablet Therapy Pack as directed Orally , Taking Pyridium 200 MG Tablet 1 tablet after meals Orally Three times a day As needed, Taking Cefuroxime Axetil 500 MG Tablet 1 tablet Orally every 12 hrs , Taking CPAP Supplies - - as directed as [...] once daily for 90 days , Taking Triamterene-HCTZ 37.5-25 MG Tablet Take 1 tablet by [...] List reviewed and reconciled with the patient Objective: * Vitals: Assessment: * Assessment: 1. G astroesophageal reflux disease with esophagitis without hemorrhage - K21.00 (Primary) 2 . H yperglycemia - R73.9 Plan: * Treatment: * Procedure Codes: 8 3036 GLYCATED HEMOGLOBIN TEST, Modifiers: QW , 3044F HG A1C LEVEL LT 7.0% * Images: Billing Information: * Visit Code: * Procedure Codes: 71432 GLYCATED HEMOGLOBIN TEST. Modifiers: QW 3044F HG A1C LEVEL LT 7.0%. * Electronic signature of Jody oRche MD on 12/29/2024 at 01:03 PM EDT Sign off status: Pending * Provider: Jody Roche M.D. Date: 0 11/24/2024 Generated for Mina tolbert/Jaspal/Gilson on: 0 12/29/2024 01:03 PM EDT
--- OUTSIDE RECORDS SUMMARY | 2024-11-28 12:00 | XMS_ITS ---
Author Organization [facility] Address [address] [place] [id number] Care Team Providers Care Project Designer Name Role Phone Jody Roche Primary Care Provider [phone] Jack Cuevas Unavailable [phone] Allergies Allergen (clinical drug ingredient) Drug/Non Drug Allergy documented on EMR Reaction Allergy Type Onset Date Status hydrochlorothiazide / lisinopril Lisinopril-hydro CHLOROthiazide rash, mouth tingling Drug Allergy Active Results Component Value Reference Range Notes Urinalysis - Inhouse Reviewed date:11/29/2024 10:18:46 AM Interpretation: Performing Lab: Notes/Report: Color/Clarity dark yellow/clear Leuk 1+ Nitrite pos Urobili 16 Protein 3+ pH 6.5 Blood 3+ Sp. Gr. 1.015 Ketone trace Bili neg Gluc neg P-Culture, Urine Reviewed date:12/01/2024 02:58:27 PM Interpretation:sensitive Performing Lab: Notes/Report: Test performed by [facility] [address] [place] [address] , [address], [place] [address] Anirudh Randle MD, Mailhouse Operator CLIA: [id number] Specimen Source Urine - Void Culture, Urine See Below See Microbiol ogy Report Escherichia coli 10,000-15,000 CFU/ml Escherichia coli Sensitivity Panel See Below ____ Organism E. coli Antibiotic INTERP ____ Amikacin S Ampicillin S Aztreonam S Cefepime S Cefoxitin S Ceftazidime S Ceftriaxone S Cefuroxime S Ciprofloxacin S Ertapenem S Gentamicin S Imipenem S Levofloxacin S Meropenem S Nitrofurantoin S Piperacillin/Tazo S Tetracycline S Tobramycin S Trimeth/Sulfa S ___ S=SUSCEPTIBLE I=INTERMEDIATE R=RESISTANT REASON FOR VISIT poss UTI Medications Medication SIG (Take, Route, Frequency, Duration) Notes Start Date End Date Status amLODIPine Besylate 5 MG Take 1 tablet b y mouth once daily for 90 days; Duration: 90 Active Triamterene-HCTZ 37.5-25 MG Take 1 table t by mouth once daily; Duration: 90 Active Ibuprofen 800 MG 1 tablet with food o r milk as needed Orally three times a day as needed 06/11/2023 Active Cymbalta 30 MG 1 cap(s) orally once a day; Duration: 90 days Active Losartan Potassium 50 MG 1 tab(s) orally Two times a day; Duration: 30 days Active Esomeprazole Magnesium 40 MG 1 capsule Orally Once a day; Duration: 30 days Active Tylenol 8 Hour 650 MG 1 tab Orally every 8 hrs Active Sulfamethoxazole-Trimethopr im 800-160 MG 1 tablet Orally twice a day; Duration: 7 days 11/28/2024 Active CPAP Supplies - as directed as directed 01/14/2024 Active Gabapentin 600 MG 1 tablet Orally Thre e times a day; Duration: 30 day(s) 11/18/2024 Active OxyCONTIN 20 MG 1 tab(s) orally 2 ti mes a day; Duration: 30 days 10/27/2024 Active Vital Signs Blood pressure systolic 124 mm Hg 11/29/19 25 Blood pressure diastolic 70 mm Hg 025 Heart Rate 95 /min 11/28/2024 Height 62.75 in 11/28/2024 Weight 217.6 lbs 11/28/2024 BMI 38.85 kg/m2 11/28/2024 Encounters Encounter Location Date Provider Diagnosis [facility] [address] [facility] [address] [facility] [address] [place] [phone] 11/28/2024 Jack Cuevas Acute UTI N39.0 Assessments Encounter Date Diagnosis (ICD Code) Assessment Notes Treatment Notes Treatment Clinical Notes Section Notes 11/28/2024 Acute UTI (ICD-10 - N39.0) Plan Of Treatment Medication Medication Name Sig Start Date Stop Date Notes Sulfamethoxazole-Trimethopri m 800-160 MG 1 tablet Orally twice a day; Duration: 7 days 11/28/2024 Next Appt Details Follow Up: via phone to repo rt progress, Reason: Provider Name:Jody Suarez er, 02/27/2025 10:45:00 AM, [address] [facility] [address] [facility], [address], [place], [phone], Progress Notes * Luly MIRELESOB:1960 (64 yo F)Acc No.[id number]:11/28/2024 Progress Notes Patient: Patti SPRAGUE Provider: Quoc Cuevas M.D. :1960 A ge:64 Y S ex:Female Date:11/28/2024 Address:[facility] [place] [address] [place] [facility] [id number] Pcp:Jody Roche Subjective: * Chief Complaints: * 1 . poss UTI. * HPI: U rology: Pt states these symptoms stared this morning. Pt states she has been here for UTI and it has been off and on since then. 64 year old female presents with c/o frequent urination s mall amount. c/o burning sensation d uring urination. c/o Pressure. Denies : flank pain. * ROS: C ARDIOLOGY: no D izziness. n o C hest pain. D ERMATOLOGY: no R dillon. n o H henry. G ASTROENTEROLOGY: no N ausea. n o V omiting. * Medical History: H ypertension, Chronic back pain, Lumbar Disc Disease, 10/04/2016 neg Cardiolyte GXT, 10/04/2016 Echocardiogram, normal EF, 10/04/2016 US liver, fatty infiltration. * Surgical History: B reast Reduction 1989, Tubal Ligation 1990, Cholecystectomy 1997, rectal fissure repair 05/05/2005, Right L5-S1 facetectomy, laminectomy, discectomy with fixation. Dr. Petit 11/29/2009, left knee arthroplasty, [facility] 11/12/2017, right knee replacement, [facility] 02/2018. * Hospitalization/Major Diagno stic Procedure: D enies Past Hospitalization. * Family History: F ather: alive 85 [...] mouth tingling. Objective: * Vitals: W t: 217.6, Temp: 98.1, BP: 124/70, HR: 95, Nurse: pe, Ht: 62.75, BMI:38.85. * Examination: G eneral Examination: General Appearance: N AD. H eart: R SR. L ungs:?clear to auscultation. B ack: n o CVA tenderness. Assessment: * Assessment: 1. A cute UTI - N39.0 (Primary) Plan: * Treatment: Value Reference Range C ulture, Urine See Below - * S pecimen Source Urine - Void - * S ensitivity Panel See Below - * E scherichia coli 10,000-15,000 CFU/ml Escherichia coli - * Julisa Macdonald 12/01/2024 10:5 0:44 AM EDT >pt started on Trimeth/Sulfa Frances Rogel 12/01/2024 02:57:59 PM EDT > Pt notified ?LAB: Urinalysis - Inhouse (Collection Date & Time - 11/28/2024)* Value Reference Range C olor/Clarity dark yellow/clear * L euk 1+ * N itrite pos * U robili 16 * P rotein 3+ * p H 6.5 * B lood 3+ * S p. Gr. 1.015 * K etone trace * B tesfaye neg * G alma delia neg * Leah Garzon 11/28/2024 0 4:16:04 PM EDT > Provider reviewed results while patient in office. Chery Swift 11/29/2024 10:18:11 AM EDT > Patient informed of normal results. * Procedure Codes: G 2211 Complex e/[place], [address] Urinalysis, no micro * Follow Up: v ia phone to report progress * Images: Billing Information: * Visit Code: 56299 Office Visit, Est Pt., Level 3. * Procedure Codes: G2211 Complex e[place]. [address] Urinalysis, no micro. * Electronic signature of Nay Cuevas MD on 12/29/2024 at 01:03 PM EDT Sign off status: Pending * Provider: Quoc Cuevas M.D. Date: 11/28/2024 Generated for Mina tolbert/Jaspal/Gilson on: 12/29/2024 01:03 PM EDT History and Physical Notes * HPI (History of Present Illness) Category Sub-Category Detail Notes Category Not es Urology frequent urination small amount burning sensation during urination flank pain Pressure Examination Category Sub-Category Detail Notes Category Not es General Examination Heart: RSR Lungs: clear to auscultatio n General Appearance: NAD Back: no CVA tenderness
--- OUTSIDE RECORDS SUMMARY | 2024-12-10 11:33 | XMS_ITS ---
Author Organization [facility] Address [address] [facility] [address] [facility] [address] [place] [phone] Care Team Providers Care Coating And Embossing Unit Operator Name Role Phone Jody Roche Primary Care Provider REASON FOR VISIT Message Encounters Encounter Location Date Provider Diagnosis [facility] [address] [facility] [address] [place] [phone] 12/10/2024 Jody Roche Right hip pain M25.551 Assessments Encounter Date Diagnosis (ICD Code) Assessment Notes Treatment Notes Treatment Clinical Notes Section Notes 12/10/2024 Right hip pain (ICD-10 - M25.551) Plan Of Treatment Pending Test Test Name Order Date MRI : Hip, right with contrast Next Appt Details Provider Name:Jody Suarez er, 02/27/2025 10:45:00 AM, [address] [facility], [address], [place], [phone], Progress Notes * Luly MIRELESOB:1960 (64 yo F)Acc No.[id number]:12/10/2024 Patient: Maurice SPRAGUEie :1960 A ge:64 Y S ex:Female Address:[address] [place] [address] Subjective: * Chief Complaints: * M essage * Medical History: * Surgical History: * Hospitalization/Major Diagno stic Procedure: * Medications: Objective: * Vitals: * Physical Examination: Assessment: * Assessment: 1. R ight hip pain - M25.551 (Primary) Plan: * Treatment: * Procedure Codes: * true * Date: Generated for Mina tolbert/Jaspal/Gilson on: 0 12/29/2024 01:04 PM EDT
--- OUTSIDE RECORDS SUMMARY | 2024-12-22 06:30 | XMS_ITS ---
Author Organization [facility] Address [address] [place] [phone] Care Team Providers Care Publicity Writer Name Role Phone Jody Roche Primary Care Provider Allergies Allergen (clinical drug ingredient) Drug/Non Drug Allergy documented on EMR Reaction Allergy Type Onset Date Status hydrochlorothiazide / lisinopril Lisinopril-hydro CHLOROthiazide rash, mouth tingling Drug Allergy Active REASON FOR VISIT 3 months WORKERS COMP (cannot discuss any other medical issues) Medications Medication SIG (Take, Route, Frequency, Duration) Notes Start Date End Date Status amLODIPine Besylate 5 MG Take 1 tablet b y mouth once daily for 90 days; Duration: 90 Active Triamterene-HCTZ 37.5-25 MG Take 1 table t by mouth once daily; Duration: 90 Active Gabapentin 600 MG 1 tablet Orally Thre e times a day; Duration: 30 day(s) 12/22/2024 Active CPAP Supplies - as directed as directed 01/14/2024 Active Tylenol 8 Hour 650 MG 1 tab Orally every 8 hrs Active OxyCONTIN 20 MG 1 tab(s) orally 2 ti mes a day; Duration: 30 days 12/03/2024 Active DULoxetine HCl 60 MG 1 capsule Orally On ce a day; Duration: 30 days 12/09/2024 Active Ibuprofen 800 MG 1 tablet with food o r milk as needed Orally three times a day as needed 06/11/2023 Active Losartan Potassium 50 MG 1 tab(s) orally Two times a day; Duration: 30 days Active Esomeprazole Magnesium 40 MG 1 capsule Orally Once a day; Duration: 30 days Active Vital Signs Blood pressure systolic 130 mm Hg 12/23/19 25 Blood pressure diastolic 80 mm Hg 025 Heart Rate 95 /min 12/22/2024 Height 62.75 in 12/22/2024 Weight 215.6 lbs 12/22/2024 BMI 38.49 kg/m2 12/22/2024 Encounters Encounter Location Date Provider Diagnosis [facility] [address] [place] [phone] 12/22/2024 Jody Roche Low back pain due to displacement of intervertebral disc M51.26 ; Low back pain M54.5 ; Type 2 diabetes mellitus without complication, unspecified whether group home insulin use E11.9 and Lumbar radiculopathy, right M54.16 Assessments Encounter Date Diagnosis (ICD Code) Assessment Notes Treatment Notes Treatment Clinical Notes Section Notes 12/22/2024 Low back pain due to displacement of intervertebral disc (ICD-10 - M51.26) 12/22/2024 Low back pain (ICD-10 - M54.5) 12/22/2024 Type 2 diabetes mellitus without complication, unspecified whether group home insulin use (ICD-10 - E11.9) 12/22/2024 Lumbar radiculopathy, right (ICD-10 - M54.16) Plan Of Treatment Medication Medication Name Sig Start Date Stop Date Notes Gabapentin 600 MG 1 tablet Orally Thre e times a day; Duration: 30 day(s) 12/22/2024 DULoxetine HCl 60 MG 1 capsule Orally On ce a day; Duration: 30 days 12/09/2024 Next Appt Details Follow Up: 4 Weeks, Reason: Provider Name:Jody Suarez , 02/27/2025 10:45:00 AM, [address], [address], [place] [phone], Progress Notes * Luly MIRELESOB:1960 (64 yo F)Acc No.[id number]:12/22/2024 Progress Notes Patient: Patti SPRAGUE Provider: Jody Roche M.D. :1960 A ge:64 Y S ex:Female Date:12/22/2024 Address:[address] [place] [address], [id number] Subjective: * Chief Complaints: * 1 . 3 months WORKERS COMP (cannot discuss any other medical issues). * HPI: H PI: 64 year old female presents with c/o Patient is here today for?Pt is here today for a workers comp visit. Pt sts her back and seems to be bothering her lately. Also with diaphoresis. States soy supplements have not helped. Discussed Duloxetine effects on the back pain. No therapy last week due to pending MRI.. * ROS: C ARDIOLOGY: no D izziness. [...] Jasbir 11/12/2017, right knee replacement, [facility] 02/2018. * Family History: F ather: alive [...] times a day as needed , Taking Losartan Potassium 50 MG Tablet 1 tab(s) orally Two times a day , Taking Esomeprazole Magnesium 40 MG Capsule Delayed Release 1 capsule Orally Once a day , Taking Gabapentin 600 MG Tablet 1 tablet Orally Three times a day , Taking OxyCONTIN 20 MG Tablet ER 12 Hour Abuse-Deterrent 1 tab(s) orally 2 times a day , Taking amLODIPine Besylate 5 MG Tablet Take 1 tablet by mouth once daily for 90 days , Taking Triamterene-HCTZ 37.5-25 MG Tablet Take 1 tablet by mouth once daily , Taking DULoxetine HCl 30 MG Capsule Delayed Release Particles 1 capsule Orally Once a day , Medication List reviewed and reconciled with the patient * Allergies: L isinopril-hydroCHLOROthiazide: rash, mouth tingling. Objective: * Vitals: W t: 215.6, Temp: 98.2, BP: 130/80, HR: 95, Nurse: shyanne, Ht: 62.75, BMI:38.49. * Examination: G eneral Examination: General Appearance: [...] edema. . Assessment: * Assessment: 1. L ow back pain due to displacement of intervertebral disc - M51.26 (Primary) ?2. L ow back pain - M54.5 3 . T ype 2 diabetes mellitus without complication, unspecified whether group home insulin use - E11.9 4 . L umbar radiculopathy, right - M54.16 Plan: * Treatment: * Follow Up: 4 Weeks * Images: Billing Information: * Visit Code: 70251 Office Visit, Est Pt., Level 4. * Procedure Codes: * Electronic signature of Jody Roche MD on 12/29/2024 at 01:02 PM EDT Sign off status: Pending * Provider: Jody Roche M.D. Date: 0 12/22/2024 Generated for Mina tolbert/Jaspal/Marianaitting on: 0 12/29/2024 01:02 PM EDT History and Physical Notes * HPI (History of Present Illness) Category Sub-Category Detail Notes Category Not es HPI Patient is here today for Pt is here today for a workers comp visit. Pt sts her back and seems to be bothering her lately. Also with diaphoresis. States soy supplements have not helped. Discussed Duloxetine effects on the back pain. No therapy last week due to pending MRI. Examination Category Sub-Category Detail Notes Category Not [...]
--- NOTE | 2024-12-29 13:01 | MR_ITS ---
FINAL REPORT CLINICAL HISTORY: ight hip pain, giving out on her causing falls COMPARISON: None FINDINGS: MR RIGHT HIP TECHNIQUE: Multiplanar MR with and without gadolinium enhancement. FINDINGS: ARTICULAR CARTILAGE: No focal defects. LABRUM: No focal tear MARROW SIGNAL: There are cystic changes in the acetabular roofs bilaterally, which enhance after contrast administration, that likely represent degenerative subchondral cysts. There is no evidence of occult fracture or avascular necrosis. JOINT FLUID: Physiologic quantity. ADJACENT SOFT TISSUES: There is linear enhancement overlying the greater tuberosities of the proximal femurs consistent with bilateral trochanteric bursitis. There is increased signal with enhancement of the left hamstring tendon bony attachment compatible with partial tear. No evidence of soft tissue mass or muscle tear. IMPRESSION: 1. No acute osseous abnormality. 2. Degenerative changes presumably account for the signal abnormalities in the acetabular roofs. 3. Partial tear of the left hamstring tendon attachment. Reviewed, Interpreted and Dictated by Cornell Shepherd MD Transcribed by Annette Suggs Authenticated and [facility]
--- OUTSIDE RECORDS SUMMARY | 2024-12-29 13:04 | XMS_ITS | Patient Health Record ---
[facility] Organization [facility] [address] [place] [id number] Care Team Providers Care Quartz Miner Name Role Phone Jody Roche Primary Care Provider Suzie Lyons Unavailable [phone] Jack Cuevas Unavailable [phone] Allergies Allergen (clinical drug ingredient) Drug/Non Drug Allergy documented on EMR Reaction Allergy Type Onset Date Status hydrochlorothiazide / lisinopril Lisinopril-hydro CHLOROthiazide rash, mouth tingling Drug Allergy Active Results Component Value Reference Range Notes Mammogram Reviewed date:05/28/2024 11:42:37 AM Interpretation:Negative, annual f/u Performing Lab: Notes/Report: Negative, annual f/u result Negative, annual f/u Pathology evaluation Reviewed date:07/11/2024 05:27:06 PM Interpretation:Normal Performing Lab: Notes/Report: Normal P-Comprehensive Metabolic Pa rosmery (CMP) Reviewed date:06/25/2024 09:07:20 AM Interpretation:Cr 1.07, gfr 58 Performing Lab: Notes/Report: Test performed by [facility], [facility] [address] [place] [address] , [address], [place] [address] Anirudh Randle MD, Rn Transplant CLIA: [id number] Sodium 141 135-145 mmol/L Potassium 3.8 3.5-5.3 [...] 0.2 <0.2-1.2 mg/dL A/G Ratio 1.9 1.1-2.5 Cologuard Reviewed date:08/29/2024 04:11:19 PM Interpretation:Negative Performing Lab: Notes/Report: Negative P-Pap Test Thin Prep Reviewed date:07/24/2024 04:25:51 PM Interpretation:Negative Performing Lab: Notes/Report: Pap Test Thin Prep Negative for Intraepithelial Lesion or Malignancy Source: Vaginal/Cervical/Endoc ervical LMP: 12/04/2022 Date Taken: 07/18/2024 Specimen Type: ThinPrep Vial Date Reported: 07/23/2024 Clinical Data: Last Pap: negative (12/04/2022) [employer]: DEION Buck(ASCP) Date Reported: 07/23/2024 Reviewed By: DEION Brenner(ASCP) Specimen Adequacy: Satisfactory for evaluation Scant cellularity General Categorization: NEGATIVE FOR INTRAEPITHELIAL LESION OR MALIGNANCY Interpretation/Result: Atrophy Comments/Recommendatio ns: Inflammation The following tests have been ordered [...] End of Report Technical services provided by [facility], [facility], d/b/a [facility] [address] [place] [address] , [place] [address] Jorge Hightower MD, Rn Transplant. Case reviewed and diagnosis rendered at [facility], [place], d/b/a [facility] [address] [place] [address] , [place] [address] Jorge Hightower MD, Rn Transplant. CONFIDENTIAL Urinalysis - Inhouse Reviewed date:11/05/2024 12:04:30 PM Interpretation: Performing Lab: Notes/Report: Color/Clarity Light Red/ Clear Leuk Trace Nitrite Neg Urobili 16 Protein 3+ pH 7.0 Blood 3+ Sp. Gr. 1.020 Ketone Neg Bili Neg Gluc Neg TEN-UTI panel Reviewed date:11/07/2024 01:05:44 PM Interpretation:E. coli Performing Lab: Notes/Report: E. coli Glycohemoglobin A1c (in hous e) Reviewed date:11/26/2024 10:57:27 AM Interpretation:5.8% Performing Lab: Notes/Report: 5.8% glycohemoglobin 5.8% 5 - 6.5 % P-Basic Metabolic Panel (BMP ) Reviewed date:11/29/2024 10:18:46 AM Interpretation:Normal Performing Lab: Notes/Report: Test performed by [employer] [address] [place] [address] , [place] [address] Anirudh Randle MD, Rn Transplant CLIA: [id number] Sodium 139 135-145 mmol/L Potassium 3.5 3.5-5.3 mmol/L Chloride 101 97-108 mmol/L CO2 27 20-32 mmol/L Glucose 97 65-99 mg/dL BUN 14 8-23 mg/dL Creatinine 0.99 0.50-1.00 mg/dL Calcium 9.1 8.6-10.4 mg/dL eGFR by Creatinine 63 >59 mL/min/1.73m2 P-Magnesium Reviewed date:11/29/2024 10:18:46 AM Interpretation:Normal Performing Lab: Notes/Report: Test performed by [facility] [employer] [address] [place], [place] [address] [place] , [address], [place] [address] Anirudh Randle MD, Rn Transplant CLIA: [id number] Magnesium 2.0 1.6-2.4 mg/dL Urinalysis - Inhouse Reviewed date:11/29/2024 10:18:46 AM Interpretation: Performing Lab: Notes/Report: Color/Clarity dark yellow/clear Leuk 1+ Nitrite pos Urobili 16 Protein 3+ pH 6.5 Blood 3+ Sp. Gr. 1.015 Ketone trace Bili neg Gluc neg P-Culture, Urine Reviewed date:12/01/2024 02:58:27 PM Interpretation:sensitive Performing Lab: Notes/Report: Test performed by [facility], [place] [address] [facility] , [address], [place] [address] Anirudh Randle MD, Rn Transplant LENORA: [id number] Specimen Source Urine - Void Culture, Urine See Below See Microbiol ogy Report Escherichia coli 10,000-15,000 CFU/ml Escherichia coli Sensitivity Panel See Below Organism E. coli Antibiotic INTERP Amikacin S Ampicillin S Aztreonam S Cefepime S Cefoxitin S Ceftazidime S Ceftriaxone S Cefuroxime S Ciprofloxacin S Ertapenem S Gentamicin S Imipenem S Levofloxacin S Meropenem S Nitrofurantoin S Piperacillin/Tazo S Tetracycline S Tobramycin S Trimeth/Sulfa S S=SUSCEPTIBLE I=INTERMEDIATE R=RESISTANT X ray : Hip, right Reviewed date:11/14/2024 10:22:49 AM Interpretation:mild degenerative change with cysts- see 10/2024 f/u OV Performing Lab: Notes/Report: mild degenerative change with cysts- see 10/2024 f/u OV Urinalysis - Inhouse Reviewed date:11/18/2024 10:45:05 AM Interpretation: Performing Lab: Notes/Report: Color/Clarity Yellow/Cloudy Leuk 3+ Nitrite Neg Urobili 16 Protein 2+ pH 7.0 Blood 2+ Sp. Gr. 1.015 Ketone Neg Bili Neg Gluc Neg P-Culture, Urine Reviewed date:11/20/2024 12:11:54 PM Interpretation:sensitive Performing Lab: Notes/Report: Test performed by [facility] [address] [place] [address] , [address], [place] [address] Anirudh Randle MD, Rn Transplant [place]: [id number] Specimen Source Urine - Void Culture, Urine See Below See Microbiol ogy Report Escherichia coli 50,000-100,000 CFU/m l Escherichia coli Sensitivity Panel See Below Ampicillin S Aztreonam S Cefepime S Cefoxitin S Ceftazidime S Ceftriaxone S Cefuroxime S Ciprofloxacin S Ertapenem S Gentamicin S Imipenem S Levofloxacin S Meropenem S Nitrofurantoin S Piperacillin/Tazo S Tetracycline S Tobramycin S Trimeth/Sulfa S S=SUSCEPTIBLE I=INTERMEDIATE R=RESISTANT Organism E. coli Antibiotic INTERP Amikacin S HPV High Risk Screen (TMA) Reviewed date:07/24/2024 04:25:51 PM Interpretation:Negative Performing Lab: Notes/Report: HPV High Risk NOT DETECTED The human papillomavirus (HPV) High Risk Screen is an FDA-approved in-vitro amplified nucleic acid test for the qualitative detection of E6/E7 viral mRNA. Results should be correlated with patient presentation, history, cervical cytology and other clinical and laboratory findings. See https://www.[employer].WinAd /sites/default/files/ 2017-06/[email or web address] pd for further information. Test performed by [facility] d/b/a [facility], [address] [place] [address] , [facility], [place] [address], Eugenia Gallegos DO, Rn Transplant, [facility]# [id number] Medications Medication SIG (Take, Route, Frequency, Duration) Notes Start Date End Date Status OxyCONTIN 20 MG 1 tab(s) orally 2 ti mes a day; Duration: 30 days 12/03/2024 Active amLODIPine Besylate 5 MG Take 1 tablet b y mouth once daily for 90 days; Duration: 90 Active DULoxetine HCl 60 MG 1 capsule Orally On ce a day; Duration: 30 days 12/09/2024 Active Triamterene-HCTZ 37.5-25 MG Take 1 table t by mouth once daily; Duration: 90 Active Gabapentin 600 MG 1 tablet Orally Thre e times a day; Duration: 30 day(s) 12/22/2024 Active Ibuprofen 800 MG 1 tablet with [...] 1 tab Orally every 8 hrs Active Immunizations Vaccine Route Administration Date Status [...] Problem Status W/U Status Risk Notes Problem Low back pain (189770322) Low back pain (M54.5) Active confirmed Problem Displacement of lumbar intervertebral disc without myelopathy (16279107) Low back pain due to displacement of intervertebral disc (M51.26) Active confirmed Problem Essential hypertension (04449556) Essential hypertension (I10) Active confirmed Problem Psoriasis (2843167) Psoriasis (L40.9) Active co nfirmed Problem Recurrent falls (880878026) Falls frequently (R29.6) Active confirmed Problem Chronic pain (12804348) Other chronic pain (G89.29) Active confirmed Problem Seborrheic keratosis (67260216) Seborrheic keratosis (L82.1) Active confirmed Problem Chronic pain (10856140) Other chronic pain (G89.29) Active confirmed Problem Renal insufficiency (257748994) Renal insufficiency (N28.9) Active confirmed Problem Visual disturbance (58765608) Visual disturbance (H53.9) Active confirmed Problem Seborrheic dermatitis of scalp (696572666) Seborrheic dermatitis of scalp (L21.9) Active confirmed Problem Colon cancer screening (344175566) Colon cancer screening (Z12.11) Active confirmed Problem Obese class II (247841326376893) BMI 38.0-38.9,adult (Z68.38) Active confirmed Problem Osteoarthritis of knee (830261939) Primary osteoarthritis of right knee (M17.11) Active confirmed Problem Osteoarthritis of knee (036632738) Primary osteoarthritis of left knee (M17.12) Active confirmed Problem Lentigo (054412571) Lentigo (L81.4) Active conf irmed Problem Recurrent falls (350195729) Frequent falls (R29.6) Active confirmed Problem Fibrocystic breast changes (10460389) Fibrocystic breast disease (FCBD), unspecified laterality (N60.19) Active confirmed Problem Lumbar radiculopathy (493723401) Lumbar radiculopathy, right (M54.16) Active confirmed Problem Type II diabetes mellitus without complication (489254892) Type 2 diabetes mellitus without complication, unspecified whether supervisor intermediates insulin use (E11.9) Active confirmed Problem Neoplasm of skin of chest (273339218) Neoplasm of skin of chest (D49.2) Active confirmed Problem Gastroesophageal reflux disease with esophagitis (disorder) (626977729) Gastroesophageal reflux disease with esophagitis without hemorrhage (K21.00) Active confirmed Problem Squamous cell carcinoma of skin of cheek (disorder) (074755817) 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) Active confirmed Problem Basal cell carcinoma (BCC) of chest wall (C44.519) Active confirmed Vital Signs Heart Rate 95 /min 12/22/2024 Blood pressure diastolic 80 mm Hg 12/22/2024 Height 62.75 in 12/22/2024 Blood pressure systolic 130 mm Hg 12/22/2024 Weight 215.6 lbs 12/22/2024 BMI 38.49 kg/m2 12/22/2024 Encounters Encounter Location Date [facility] [place] [address] [id number] 01/14/2024 Jody Roche Low back pain due to displacement of intervertebral disc M51.26 ; Essential hypertension I10 and Renal insufficiency N28.9 [facility] [address] [id number] 03/17/2024 Jody Roche Low back pain due to displacement of intervertebral disc M51.26 ; Other chronic pain G89.29 ; Essential hypertension I10 and Type 2 diabetes mellitus without complication, unspecified whether supervisor intermediates insulin use E11.9 [facility] [place] [address] [id number] 04/14/2024 Jody Roche Essential hypertensi on I10 ; Low back pain due to displacement of intervertebral disc M51.26 ; Other chronic pain G89.29 ; Fibrocystic breast disease (FCBD), unspecified laterality N60.19 and Type 2 diabetes mellitus without complication, unspecified whether assisted insulin use E11.9 [facility] [address] [facility] [address] [place], [place] [id number] 06/23/2024 Jody Roche Low back pain due to displacement of intervertebral disc M51.26 ; Renal insufficiency N28.9 and Screen for colon cancer Z12.11 [facility] 1210 [facility] [address] [place], [place] [id number] 07/18/2024 Jody Roche Well woman exam with routine gynecological exam Z01.419 ; Lumbar radiculopathy, right M54.16 and Type 2 diabetes mellitus without complication, unspecified whether supervisor intermediates insulin use E11.9 [facility] 12[address] [facility] [address] [place], [place] [id number] 09/15/2024 Jody Roche Low back pain due to displacement of intervertebral disc M51.26 ; Low back pain M54.5 ; Other chronic pain G89.29 and BMI 38.0-38.9,adult Z68.38 [facility] [address] [facility] [address] [place], [place] [id number] 10/06/2024 Jody Roche Right hip pain M25.5 51 [facility] 1210 [facility] [address] [place], [place] [id number] 10/27/2024 Jody Roche Right hip pain M25.5 51 and Lumbar radiculopathy, right M54.16 [facility] [address] [facility] [address] [place], [place] [id number] 11/05/2024 Jack Gibson Acute UTI N39.0 [facility] [address] [facility] [address] [place], [place] [id number] 11/17/2024 Jack Gibson Acute UTI N39.0 [facility] 1210 [facility] [address] [place], [place] [id number] 11/24/2024 Jody Roche Lumbar radiculopathy , right M54.16 ; Gastroesophageal reflux disease with esophagitis without hemorrhage K21.00 and Hyperglycemia R73.9 [facility] [address] [facility] [address] [place] [id number] 11/24/2024 Jody Roche Gastroesophageal ref lux disease with esophagitis without hemorrhage K21.00 and Hyperglycemia R73.9 [facility] [address] [facility] [address] [place] [id number] 11/28/2024 Jack Gibson Acute UTI N39.0 [facility] [address] [facility] [address] [place] [id number] 12/22/2024 Jody Roche Low back pain due to displacement of intervertebral disc M51.26 ; Low back pain M54.5 ; Type 2 diabetes mellitus without complication, unspecified whether assisted insulin use E11.9 and Lumbar radiculopathy, right M54.16 [facility] [address] [facility] [address] [place] [id number] 08/15/2024 Jody Roche Low back pain due to displacement of intervertebral disc M51.26 ; Low back pain M54.5 ; Other chronic pain G89.29 ; Essential hypertension I10 ; Type 2 diabetes mellitus without complication, unspecified whether assisted insulin use E11.9 ; Squamous cell carcinoma of cheek C44.329 ; BMI 38.0-38.9,adult Z68.38 and Lumbar back pain M54.50 [facility] [place] [facility] [facility] [address] [place] [id number] 12/31/2023 Jody Roche [facility] [place] [facility] [facility] [address] [place] [id number] 01/01/2024 Jody Roche Low back pain due to displacement of intervertebral disc M51.26 and Sprain of low back, initial encounter S33.5XXA [facility] [address] [facility] [address] [place] [id number] 01/14/2024 Jody Roche [facility] [place] [facility] [facility] [address] [place] [id number] 01/15/2024 Jody Roche Essential hypertensi on I10 [facility] [facility] [facility] [address] [place] [id number] 01/30/2024 Jody Roche Low back pain due to displacement of intervertebral disc M51.26 [facility] [address] [place], [place] [id number] 02/25/2024 J Gian Melchor [facility] [address] [place], [place] [id number] 03/03/2024 J Gian Melchor Low back pain due to displacement of intervertebral disc M51.26 [facility] [address] [place] [id number] 03/12/2024 J Gian Melchor [facility] [address] [place] [id number] 03/12/2024 J Gian Melchor [facility] [address] [place] [id number] 04/01/2024 R Korey Lyons Low back pain due to displacement of intervertebral disc M51.26 [facility] [address] [place] [id number] 05/02/2024 J Gian Melchor Low back pain due to displacement of intervertebral disc M51.26 [facility] [address] [place], [place] [id number] 06/02/2024 J Gian Melchor Low back pain due to displacement of intervertebral disc M51.26 [facility] [address] [place] [id number] 06/25/2024 J Gian Melchor [facility] [address] [place] [id number] 07/01/2024 J Gian Melchor Low back pain due to displacement of intervertebral disc M51.26 [facility] [address] [place], [place] [id number] 08/28/2024 Jack Gibson Lumbar radiculopathy , right M54.16 [facility] [address] [place] [id number] 09/29/2024 J Gian Melchor Lumbar radiculopathy , right M54.16 [facility] [address] [place], [place] [id number] 10/08/2024 J Gian Melchor [facility] [address] [place], [place] [id number] 10/14/2024 Jody Gian Roche [facility] [address] [place], [place] [id number] 11/05/2024 Jody Gian Roche [facility] [address] [place], [place] [id number] 11/17/2024 Jody Gian Roche [facility] [address] [place] [id number] 11/17/2024 Jody Roche Low back pain due to displacement of intervertebral disc M51.26 [facility] [address] [place] [id number] 11/20/2024 Jack Gibson [facility] [address] [place] [id number] 12/01/2024 Jody Roche Lumbar radiculopathy , right M54.16 [facility] [address] [place], [place] [id number] 12/09/2024 Jody Roche [facility] [address] [place] [id number] 12/09/2024 Jody Gian Roche [facility] [address] [place], [place] [id number] 12/10/2024 Jody Roche Right hip pain M25.5 51 Assessments Encounter Date Diagnosis (ICD Code) Assessment Notes Treatment Notes Treatment Clinical Notes Section Notes 01/01/2024 Low back pain due to displacement of intervertebral disc (ICD-10 - M51.26) 01/15/2024 Essential hypertension (ICD-10 - I10) 01/30/2024 [...] M51.26) 01/14/2024 Essential hypertension (ICD-10 - I10) 03/17/2024 Other chronic pain (ICD-10 - G89.29) 04/01/2024 Low back pain due to displacement [...] 07/18/2024 Lumbar radiculopathy, right (ICD-10 - M54.16) 08/15/2024 Low back pain (ICD-10 - M54.5) 08/15/2024 Low back pain due to displacement of intervertebral disc (ICD-10 - M51.26) 08/28/2024 Lumbar radiculopathy, right (ICD-10 - M54.16) 09/15/2024 Low back pain due to displacement of intervertebral disc (ICD-10 - M51.26) 09/29/2024 Lumbar radiculopathy, right (ICD-10 - M54.16) 10/06/2024 Right hip pain (ICD-10 - M25.551) 10/27/2024 Right hip pain (ICD-10 - M25.551) 11/05/2024 Acute UTI (ICD-10 - N39.0) 11/17/2024 Acute UTI (ICD-10 - N39.0) 11/17/2024 Low back pain due to displacement of intervertebral disc (ICD-10 - M51.26) 11/24/2024 Lumbar radiculopathy, right (ICD-10 - M54.16) 11/24/2024 Gastroesophageal reflux disease with esophagitis without hemorrhage (ICD-10 - K21.00) 11/24/2024 Hyperglycemia (ICD-10 - R73.9) See labs documented in duplicate Office Visit 11/24/2024 Gastroesophageal reflux disease with esophagitis without hemorrhage (ICD-10 - K21.00) 11/28/2024 Acute UTI (ICD-10 - N39.0) 12/01/2024 Lumbar radiculopathy, right (ICD-10 - M54.16) 12/10/2024 Right hip pain (ICD-10 - M25.551) 12/22/2024 Low back pain due to displacement of intervertebral disc (ICD-10 - M51.26) 12/22/2024 Low back pain (ICD-10 - M54.5) 11/24/2024 Hyperglycemia (ICD-10 - R73.9) 10/27/2024 Lumbar radiculopathy, right (ICD-10 - M54.16) 09/15/2024 Low back pain (ICD-10 - M54.5) 08/15/2024 Other chronic pain (ICD-10 - G89.29) 07/18/2024 Type 2 diabetes mellitus without complication, unspecified whether supervisor intermediates insulin use (ICD-10 - E11.9) 06/23/2024 Screen for colon cancer (ICD-10 - Z12.11) 04/14/2024 Other chronic pain (ICD-10 - G89.29) 01/14/2024 Renal insufficiency (ICD-10 - N28.9) 03/17/2024 Essential hypertension (ICD-10 - I10) 01/01/2024 Sprain of low back, initial encounter (ICD-10 - S33.5XXA) 03/17/2024 Type 2 diabetes mellitus without complication, unspecified whether assisted insulin use (ICD-10 - E11.9) 04/14/2024 Fibrocystic breast disease (FCBD), unspecified laterality (ICD-10 - N60.19) 08/15/2024 Essential hypertension (ICD-10 - I10) 09/15/2024 Other chronic pain (ICD-10 - G89.29) 12/22/2024 Type 2 diabetes mellitus without complication, unspecified whether assisted insulin use (ICD-10 - E11.9) 12/22/2024 Lumbar radiculopathy, right (ICD-10 - M54.16) 09/15/2024 BMI 38.0-38.9,adult (ICD-10 - Z68.38) 08/15/2024 Type 2 diabetes mellitus without complication, unspecified whether assisted insulin use (ICD-10 - E11.9) 04/14/2024 Type 2 diabetes mellitus without complication, unspecified whether assisted insulin use (ICD-10 - E11.9) 08/15/2024 Squamous cell carcinoma of cheek (ICD-10 - C44.329) 08/15/2024 BMI 38.0-38.9,adult (ICD-10 - Z68.38) 08/15/2024 Lumbar back pain (ICD-10 - M54.50) Plan Of Treatment Pending Test Test Name Order Date colonoscopy 03/17/2024 MRI : Hip, right with contrast MRI: Hip, right with and wo contrast 06/2024 Next Appt Details Provider Name:Jody Suarez er, 02/27/2025 10:45:00 AM, [address], [place], [place], [id number], Insurance Providers Payer Name Payer Address Payer Phone Subscriber Number Group Number Insured Name Patient Relationship to Insured Coverage Start Date Coverage End Date MEDICARE PART B [address] [address] [place] [id number] Patti Mireles Self - patient is the insured [employer] [address] [place] [phone] [id number] Patti Mireles Self - patient is the insured [...]
--- OUTSIDE RECORDS SUMMARY | 2024-12-29 13:04 | XMS_ITS | Clinical Summary ---
Author Organization Healthcare Address [address] [place] [address] Care Team Providers Care Senior Commissary Agent Name Role Phone Abelardo Roche MD Primary Care Provider [phone] JoelgregoryWilma SAMPLER AND TEST PREPARER Unavailable [phone] Allergies No known active allergies Medications amLODIPine [...] Health Maintenance Due Date Last Done Comments [facility]-Bone Density Scan 1959 [facility]-Depression Screening 1959 [facility]-/Child/Adol SDOH Screenings 1960 [facility]- SDOH Screenings 11/12/1977 [facility]-Adult SDOH Screenings 11/12/1977 [facility]-Pap Smear 11/12/1980 [facility]-Cervical Cancer Screening 11/12/1989 [facility]-HPV/Cotest 11/12/1989 CT Colonography 11/12/2004 Colonoscopy 11/12/2004 FIT-DNA 11/12/2004 FIT 11/12/2004 FOBT 11/12/2004 Sigmoidoscopy 11/12/2004 [facility]-Colorectal Cancer Screening 11/12/2004 [facility]-Pneumococcal Vaccine: 50 + Years (1 of 1 - PCV) 11/12/2009 [facility]-Zoster Vaccines (1 of 2) 11/12/2009 [id number] Vaccine (2 - season) 2024 06/23/2020 [facility]-Influenza Vaccine (#1) 12/15/202402/08, 01/02/2020 [facility]-DTaP,Tdap,and Td Vaccine s (2 - [...] Insurance MEDICARE [employer] Care Teams Senior Commissary Agent Relationship Specialty Start Date End Date Abelardo Roche MD [address] [place] [address] PCP - General 08/28/23 Wilma Rodriguez APRN [address] [place] [id number] Nurse Practitioner Neurosurgery 08/28/23
[2024-12-29 13:27] LABS: Blood Urea Nitrogen 11 mg/dl (7-17); Creatinine,Serum 0.90 mg/dl (0.52-1.04); Estimated Glomerular Filt Rate 63 ml/min (>60); GFR (African American) 76 ML/MIN (>60)
[2024-12-29] MEDS: GADOTERIDOL INJ 20ML SYRINGE 19 ML IV (14:19)
[2024-12-29] MEDS: SODIUM CHLORIDE 0.9% 10ML SYR (RAD ONLY) 10 ML IV (14:19)
== END 2024-12-29 23:59 | disposition home or self-care (01) ==
LOC: RAD 13:00
PROVIDERS: PCP Family Medicine; Visit Provider Family Medicine
DX: M16.11 Unilateral primary osteoarthritis, right hip (principal); S76.311A Strain of muscle, fascia and tendon of the posterior muscle group at thigh level, right thigh, initial encounter
CPT/HCPCS: 36415; 73723; 82565; 84520; A9576

== ENCOUNTER 2025-03-03 08:12 | Outpatient (CLI) | payer OTHER, MEDICARE, SELFPAY ==
--- NOTE | 2025-03-03 08:16 | MR_ITS ---
FINAL REPORT CLINICAL HISTORY: LUMBAR PAIN. right hip and groin pain. instability in leg COMPARISON: None FINDINGS: Multiplanar MR imaging of the lumbar spine was performed without contrast. There is posterior fusion hardware bridging L5-S1. On the sagittal T2-weighted images, there is abnormal decreased signal at the T12-L1 through L5-S1 levels. The vertebrae are of normal height. The vertebral alignment is normal. A rounded focus of abnormal signal in the L1 vertebra probably represents a hemangioma. T12-L1: There is no significant canal stenosis or neural foraminal narrowing. L1-2: Mild diffuse disc bulge. Mild bilateral neural foraminal narrowing. L2-3: Mild diffuse disc bulge. Mild bilateral neural foraminal narrowing. L3-4: Mild diffuse disc bulge. Mild bilateral neural foraminal narrowing. L4-5: Mild diffuse disc bulge. [id number] left neural foraminal narrowing. L5-S1: Endplate hypertrophy. Moderate right and mild left neural foraminal narrowing. IMPRESSION: Posterior and interbody fusion L5-S1. Neural foraminal compromise most evident on the right at L5-S1. Reviewed, Interpreted and Dictated by Scotty Bangura MD Transcribed by Brisa Spears Authenticated and . [facility]
== END 2025-03-03 23:59 | disposition home or self-care (01) ==
LOC: RAD 08:14
PROVIDERS: PCP Family Medicine; Visit Provider Orthopaedic Surgery
DX: M43.27 Fusion of spine, lumbosacral region (principal); M99.73 Connective tissue and disc stenosis of intervertebral foramina of lumbar region
CPT/HCPCS: 72148